=== PATIENT | female | born 1950 | race Caucasian/White ===

== ENCOUNTER 2017-02-25 10:25 | Outpatient (CLI) | payer MEDICARE ==
--- NOTE | 2017-02-25 13:26 | CT ---
CT CHEST NONCONTRAST: HISTORY: Lung cancer. Restaging. COMPARISON: 10/21/2016 FINDINGS: The lobular, heterogeneous mass at the right posterior suprahilar level, abutting the right posterior mediastinum, is now 5.6 cm in length x 6.1 cm in depth x 4 cm in width, where it was previously 2.3 x 2 x 1.9 cm. Subtle parenchymal opacity in the left upper lobe may represent scarring and is stable . No new masses are evident. Lack of IV contrast limits evaluation of the mediastinum. Nonenlarged precarinal lymph node is stabl e. No pleural fluid or pneumothorax are apparent. There is calcification in the aorta. IMPRESSION: 1. Enlargement of the right medial suprahilar lung mass. 2. Atherosclerosis. POS: [facility]
== END 2017-02-25 10:26 | disposition home or self-care (01) ==
LOC: CT 10:25
PROVIDERS: ATTEND Radiology Radiation Oncology
DX: C78.01 Secondary malignant neoplasm of right lung (principal); C21.1 Malignant neoplasm of anal canal; C18.7 Malignant neoplasm of sigmoid colon; R91.8 Other nonspecific abnormal finding of lung field; I70.0 Atherosclerosis of aorta
CPT/HCPCS: 36415; 71250; 82378

== ENCOUNTER 2017-03-05 07:58 | Day surgery (SDC) | payer MEDICARE ==
[2017-03-04 09:53] VITALS: BMI 23.6
[~2017-03-05 07:58] MED LIST: FLU VACC TS2017-18 (>65YR) 0.5 ML SYRINGE IM ONE
[2017-03-05 08:17] LABS: #Eosinphils 0.1 thou/uL (0.0-0.7); #Lymphocytes 1.1 thou/uL (1.20-3.40); #Monocytes 0.5 thou/uL (0.11-0.59); #Neutrophils 2.8 thou/uL (1.40-6.50); %Basophils 0.3 % (0.0-1.0); %Lymphocytes 23.5 % (21.0-51.0); %Monocytes 11.8 % (0.0-10.0); %Neutrophils 62.5 % (42.0-75.0); Hemoglobin 13.9 g/dL (12.0-16.0); Mean Corpuscular HGB CONC 33.8 g/dL (32.0-36.0); Mean Corpuscular Hemoglobin 33.4 pg (27.0-31.0); Mean Platelet Volume 6.3 fL (7.4-10.4); Platelet Count 178 thou/uL (130-400); RBC Distribution Width 13.4 % (11.5-14.5); Red Blood Cell (RBC) Count 4.15 mill/uL (4.20-5.40); White Blood Cell (WBC) Count 4.5 thou/uL (4.8-10.8)
[2017-03-05 08:26] LABS: PTT 29.8 SEC (22.9-36.1)
[2017-03-05 08:27] LABS: Prothrombin Time 13.4 SEC (12.0-14.7)
[2017-03-05 09:23] VITALS: BP 161/84; TEMP 98.6
[2017-03-05] MEDS ORDERED: Midazolam HCl 2 mg/2 ml Vial ONE (09:25)
[2017-03-05] MEDS ORDERED: Sodium Bicarbonate 2.4 MEQ/5 ML ONE (09:25)
[2017-03-05] MEDS ORDERED: Fentanyl 100 MCG/2 ML VIAL ONE (09:25)
--- NOTE | 2017-03-05 11:41 | RAD ---
CHEST ONE VIEW: History: Lung mass. Biopsy. FINDINGS/IMPRESSION: Cardiac silhouette is magnified by projection. Single expiratory view shows linear atelectasis over t he left upper lobe correlating with abnormality on recent chest CT. Large right suprahilar mass is apparent. No evidence of pneumothorax. POS: [facility]
--- NOTE | 2017-03-05 11:44 | CT ---
CT GUIDED RIGHT LUNG MASS BIOPSY: History: Lung cancer. Enlarging mass. Prior colon cancer. Medication: 1 mg Versed, IV. FINDINGS: After explaining the procedure and answering all questions, the patient was placed on the CT table in prone position. Sterile technique, buffered local anesthesia, CT guidance, and a right posterior par amidline approach were used to carefully advance the tip of a 20 gauge Trocar needle to the central a spect of the large right upper lobe mass. Position was confirmed with CT. A total of six 20 gauge core biopsy specimens were obtained and eventually submitted to pathology for evaluation. Needle was removed. Post procedure imaging shows no evidence of complication. Patient to lerated the procedure well and was returned to the holding area in good condition for further monitor ing. IMPRESSION: 1. Technically successful CT guided right upper lobe mass biopsy. Pathology is pending. POS: [facility]
--- NOTE | 2017-03-05 12:41 | RAD ---
AP CHEST: Indication: One hour post op right lung biopsy. IMPRESSION: No definite pneumothorax is evident. Right upper lobe lung mass is not appreciably changed. POS: [facility]
== END 2017-03-05 12:00 | disposition home or self-care (01) ==
LOC: CT 07:58
PROVIDERS: ATTEND Radiology Radiation Oncology
PROC: BB27ZZZ Computerized Tomography (CT Scan) of Right Tracheobronchial Tree (ICD-10-PCS; principal; 2017-03-05)
PROC: 0BB43ZX Excision of Right Upper Lobe Bronchus, Percutaneous Approach, Diagnostic (ICD-10-PCS; 2017-03-05)
DX: C78.01 Secondary malignant neoplasm of right lung (principal); C21.1 Malignant neoplasm of anal canal; C18.7 Malignant neoplasm of sigmoid colon; I10 Essential (primary) hypertension; Z79.899 Other long term (current) drug therapy; Z88.5 Allergy status to narcotic agent; Z90.49 Acquired absence of other specified parts of digestive tract; Z90.710 Acquired absence of both cervix and uterus; Z98.890 Other specified postprocedural states; Z92.21 Personal history of antineoplastic chemotherapy; Z92.3 Personal history of irradiation
CPT/HCPCS: 32405; 36415; 71045; 77012; 85025; 85610; 85730; 88305; 88313; 88341; 88342; J2250; J3010

== ENCOUNTER 2017-05-05 10:55 | Day surgery (SDC) | payer MEDICARE ==
[2017-05-04 12:43] VITALS: BMI 21.9
[2017-05-05] MEDS ORDERED: CEFAZOLIN/Water 2 GM/20 ML SYRINGE ONE (11:13)
[2017-05-05] MEDS ORDERED: Ketorolac Tromethamine 30 MG/ML VIAL ONE (11:13)
[2017-05-05] MEDS ORDERED: Bupivacaine/Epinephrine 0.25% 30 ML VIAL ONE (11:22)
[2017-05-05] MEDS ORDERED: Lidocaine 2% 10 ML INJ ONE (11:22)
[2017-05-05 11:27] LABS: #Eosinphils 0.1 thou/uL (0.0-0.7); #Lymphocytes 1.1 thou/uL (1.20-3.40); #Monocytes 0.5 thou/uL (0.11-0.59); #Neutrophils 2.1 thou/uL (1.40-6.50); %Basophils 0.9 % (0.0-1.0); %Eosinophils 1.4 % (0.0-10.0); %Lymphocytes 28.8 % (21.0-51.0); %Neutrophils 55.9 % (42.0-75.0); Hemoglobin 12.8 g/dL (12.0-16.0); Mean Corpuscular HGB CONC 34.4 g/dL (32.0-36.0); Mean Corpuscular Hemoglobin 34.2 pg (27.0-31.0); Mean Corpuscular Volume 99.3 fl (81.0-99.0); Mean Platelet Volume 6.5 fL (7.4-10.4); Platelet Count 175 thou/uL (130-400); RBC Distribution Width 17.9 % (11.5-14.5); Red Blood Cell (RBC) Count 3.73 mill/uL (4.20-5.40); White Blood Cell (WBC) Count 3.7 thou/uL (4.8-10.8)
[2017-05-05] MEDS ORDERED: Lidocaine 1% (PF) 30 ML VIAL ONE (11:35)
[2017-05-05 11:46] LABS: Anion Gap 13 mmol/L (10-20); BUN (Urea Nitrogen) 15 mg/dL (9.8-20.1); Calc. Creatinine Clearance 66 mL/min (70-130); Calcium 9.5 mg/dL (7.8-10.44); Carbon Dioxide 28 mmol/L (23-31); Chloride 101 mmol/L (98-107); Estimated GFR-MDRD 69; Glucose 97 mg/dL (80-115); Sodium 138 mmol/L (136-145)
[2017-05-05] MEDS ORDERED: Iothalamate Meglumine 60% 50 ML VIAL FS ONE (13:06)
[2017-05-05] MEDS ORDERED: Ioversol 68 % 50 ML VIAL ONE (13:07)
[2017-05-05] MEDS ORDERED: Diprivan 20 ML ONE (13:13)
--- NOTE | 2017-05-05 14:32 | OP ---
DATE OF OPERATION: 05/05/2017 PREOPERATIVE DIAGNOSIS: Metastatic cancer to her lung. POSTOPERATIVE DIAGNOSIS: Metastatic cancer to her lung. OPERATION PERFORMED: Attempted placement of left subclavian and left internal jugular catheter, with subsequent successful placement of a right subclavian power compatible low-profile MediPort. SURGEON: Cam Villeda M.D. ANESTHESIA: Total intravenous anesthesia per Sherman Lee CRNA. INDICATIONS: The patient is a 66-year-old white female. She is well known to myself from prior surg manuela. She, unfortunately, presents this time with evidence of metastatic cancer to her right lung. S he has had a prior left-sided MediPort placement. Since her cancer is in the right lung, I recommend ed an attempt at placement of a left-sided port again. DESCRIPTION OF OPERATION: Informed consent was obtained. The patient was taken to the operating rafa m where general anesthesia obtained with the patient in supine position. Bilateral chest and neck we re prepped with ChloraPrep and draped in sterile fashion. Local anesthetic was infiltrated and a lar ge gauge needle was passed under the left clavicle into the left subclavian vein without difficulty. Fluoroscopy was utilized as the wire was advanced. Unfortunately, the wire on 100% of attempts pass ed up into the left internal jugular vein. I attempted multiple maneuvers to try to get the wire to extend down into the superior vena cava and none of these were successful. After attempting this wit h fluoroscopic guidance for several minutes, I decided to turn my attention to her left internal jugu lar vein. Using ultrasound guidance, I accessed her left internal jugular vein uneventfully. Unfortunately, th e wire would not proceed across midline and down towards the heart. Again, multiple maneuvers were a ttempted to facilitate this. After attempting this for quite a while, I removed the wire and instead flushed the catheter with IV contrast. This did in fact reveal that there was patency in the brachi ocephalic vein and over towards the superior vena cava, but there may have been a stenosis in this. I attempted once again with the wire and again could not get it to make appropriate progress. I yanick ramosore decided to abandon attempts at the left-sided port placement. On the right hand side, local anesthetic was infiltrated. Large gauge needle was passed into the cla vicle on the initial pass. Guidewire was passed through the needle and fluoroscopically guided to th e superior vena cava. Additional local anesthetic was infiltrated and transverse incision was create d based on needle insertion site. Subcutaneous pocket was dissected extending inferiorly. Introduce r dilator was passed over the guidewire under fluoroscopic guidance. Catheter was passed through the introducer, which was then removed in the usual peel-apart fashion. The catheter tip was positioned at the aorto-caval junction and catheter was trimmed to appropriate length and secured to the lockin g hub of the MediPort. The port was secured to the pectoral fascia with 2 interrupted sutures of 3-0 Prolene. The wound was closed in layers with 3-0 and 4-0 Monocryl and Dermabond was placed external ly. A final fluoroscopic image was obtained, which revealed good position of the port and catheter. The port was then accessed with a Hunter needle, which was also flushed with heparinized saline. The plan is for her to get chemotherapy tomorrow and I therefore left her port accessed. Sterile dressi ng was applied over the access port. The patient tolerated the procedure well and was taken to [facility] in stable condition.
--- NOTE | 2017-05-05 15:04 | RAD ---
ONE VIEW CHEST: Comparison: 03-05-17 History: Lung cancer. Line placement. FINDINGS: Interval placement of right sided Mediport catheter with the distal tip at the level of the superior vena cava. No pneumothorax. Stable configuration of the cardiac silhouette. Areas of scarring and ate lectasis in the left midlung. Stable right paratracheal/right suprahilar mass. IMPRESSION: Right sided Mediport catheter placement. No pneumothorax. POS: [facility]
--- NOTE | 2017-05-05 15:48 | RAD ---
INTRAOPERATIVE IMAGING DURING PORT A CATH PLACEMENT: DATE: 05/05/17. HISTORY: Evaluate Port-A-Cath placement. FINDINGS: Three intraoperative images are provided. The first image demonstrates a wire curling over the regio n of the sternoclavicular joint on the left. Later imaging demonstrates injection of contrast media, which opacifies the region of the SVC/right atrium and brachiocephalic vein. The brachiocephalic ve in may be stenotic versus incompletely opacified. Final image demonstrates a right-sided Port-A-Cath with distal tip overlying the proximal right atrium. IMPRESSION: Intraoperative imaging as above. Question narrowing of the brachiocephalic vein. POS: [facility]
== END 2017-05-05 15:10 | disposition home or self-care (01) ==
LOC: SDC 10:55
PROVIDERS: ATTEND Specialist
PROC: 02HV33Z Insertion of Infusion Device into Superior Vena Cava, Percutaneous Approach (ICD-10-PCS; principal; 2017-05-05)
PROC: B5181ZA Fluoroscopy of Superior Vena Cava using Low Osmolar Contrast, Guidance (ICD-10-PCS; 2017-05-05)
DX: C78.01 Secondary malignant neoplasm of right lung (principal); Z85.048 Personal history of other malignant neoplasm of rectum, rectosigmoid junction, and anus; Z85.038 Personal history of other malignant neoplasm of large intestine; Z98.890 Other specified postprocedural states
CPT/HCPCS: 36415; 71045; 80048; 85025; 93005; 93010; C1788; J0131; J1642; J1885; J2001; J2704; Q9961; Q9967

== ENCOUNTER 2017-06-15 08:52 | Outpatient (CLI) | payer MEDICARE ==
[~2017-06-15 08:52] MED LIST changes: -FLU VACC TS2017-18 (>65YR) 0.5 ML SYRINGE IM ONE; +ISOVUE-370 76%-LOCM 1 ML ONE
== END 2017-06-15 08:53 | disposition home or self-care (01) ==
LOC: BICCT 08:52
PROVIDERS: ATTEND Internal Medicine Hematology & Oncology
DX: C20 Malignant neoplasm of rectum (principal); R91.8 Other nonspecific abnormal finding of lung field
CPT/HCPCS: 71260

== ENCOUNTER 2017-10-29 08:27 | Outpatient (CLI) | payer MEDICARE ==
[2017-10-29] MEDS ORDERED: ISOVUE-370 76%-LOCM 1 ML ONE (11:12)
--- NOTE | 2017-10-29 14:37 | CT ---
CT OF CHEST AND ABDOMEN AND PELVIS PERFORMED WITH INTRAVENOUS CONTRAST ENHANCEMENT: HISTORY: Colon cancer with metastatic disease. COMPARISON: CT of the chest performed 06/15/17 at [facility]. Review is also made of a 03/14/15 chest, abdom en, and pelvis examination. FINDINGS: The right hilar/suprahilar mass density which lies along the right side of the mediastinum and is int imate with portions of the right side of the trachea is again demonstrated. In attempting to use a s imilar point of reference on the previous examination would estimate the lesion to measure 5.9 cm AP x 4.1 cm transverse X 5.9 cm . There appears to be a minimal decrease in size, measurements on toda y's examination would be 3.5 x 5.9 x 5.3 cm. The area of nodularity with some surrounding ground-gla ss change seen in the right middle lobe is no longer visualized. No new lesions are seen. Small med iastinal lymph nodes do not appear changed in size or appearance. CT OF ABDOMEN PERFORMED WITH COTNRAST ENHANCEMENT: A small hiatal hernia is seen. The liver, spleen, pancreas, and gallbladder regions appear unremarka ble. Right and left adrenal glands and right and left kidneys are normal in size. There is no significant periaortic or mesenteric [id number]. CT OF PELVIS PERFORMED WITH CONTRAST ENHANCEMENT: There is an anastomotic suture line in the sigmoid colon. There is no adenopathy, mass, or free flui d. Appendix region appears unremarkable. Review of osseous structures showed no lytic or blastic bony change. IMPRESSION: 1. Minimal decrease in size of the right hilar/suprahilar mass density. 2. Interval resolution of the nodularity and ground-glass appearance to the right middle lobe. 3. Postoperative changes of the rectosigmoid colon. POS: [facility]
== END 2017-10-29 08:28 | disposition home or self-care (01) ==
LOC: BICCT 08:27
PROVIDERS: ATTEND Internal Medicine Hematology & Oncology
DX: C20 Malignant neoplasm of rectum (principal); R91.8 Other nonspecific abnormal finding of lung field; Z98.890 Other specified postprocedural states
CPT/HCPCS: 71260; 74177; 82565

== ENCOUNTER 2018-02-07 23:56 | Emergency (ER) | payer MEDICARE ==
[2018-02-08 00:56] LABS: #Lymphocytes 0.9 thou/uL (1.20-3.40); #Monocytes 0.3 thou/uL (0.11-0.59); #Neutrophils 3.2 thou/uL (1.40-6.50); %Basophils 0.2 % (0.0-1.0); %Lymphocytes 19.1 % (21.0-51.0); %Monocytes 6.6 % (0.0-10.0); %Neutrophils 73.1 % (42.0-75.0); Mean Corpuscular HGB CONC 33.4 g/dL (32.0-36.0); Mean Corpuscular Hemoglobin 34.2 pg (27.0-31.0); Mean Platelet Volume 6.9 fL (7.4-10.4); Platelet Count 214 thou/uL (130-400); RBC Distribution Width 13.6 % (11.5-14.5); Red Blood Cell (RBC) Count 4.11 mill/uL (4.20-5.40); White Blood Cell (WBC) Count 4.4 thou/uL (4.8-10.8)
[2018-02-08 01:18] LABS: ALT (SGPT) 18 U/L (8-55); AST (SGOT) 21 U/L (5-34); Albumin 4.5 g/dL (3.4-4.8); Alkaline Phosphatase 85 U/L (40-150); Anion Gap 15 mmol/L (10-20); BUN (Urea Nitrogen) 22 mg/dL (9.8-20.1); Bilirubin, Total 0.9 mg/dL (0.2-1.2); Calc. Creatinine Clearance 0 mL/min (70-130); Calcium 10.3 mg/dL (7.8-10.44); Carbon Dioxide 29 mmol/L (23-31); Chloride 95 mmol/L (98-107); Estimated GFR-MDRD 67; Globulin 3.2 g/dL (2.4-3.5); Glucose 126 mg/dL (80-115); Potassium 4.5 mmol/L (3.5-5.1); Protein, Total 7.7 g/dL (6.0-8.3); Sodium 134 mmol/L (136-145)
== END 2018-02-08 04:41 | disposition home or self-care (01) ==
LOC: ERS 23:56
DX: I10 Essential (primary) hypertension (principal)
CPT/HCPCS: 36415; 80053; 83690; 84484; 85025; 93005

== ENCOUNTER 2018-03-01 07:52 | Outpatient (CLI) | payer MEDICARE ==
--- NOTE | 2018-03-01 10:05 | CT ---
CT CHEST, ABDOMEN, AND PELVIS WITH CONTRAST: History: Multiple contiguous axial images were obtained through the chest, abdomen, and pelvis with I V enhancement. Oral contrast was administered. Indications: Metastatic colon cancer. Currently on chemo. History of colon resection and hysterectomy . Comparison: 10-29-17 FINDINGS: CT CHEST: The right sided suprahilar mass lesion is again seen. The overall dimension of this mass lesion has n ot significantly changed when compared to 10-29-17. Maxillary dimension today is recorded at 5.8 x 3.0 cm. A similar measurement was previously recorded at 5.8 x 3.5 cm. There is a small nodule in the right apex just above the larger mass which has increased slightly jyoti suring 6-7 mm today. This previously measured approximately 5 mm. Linear atelectasis in the left uppe r lung is stable. Mild atelectasis in the right lung base along the fissure is stable. There is mild mural thickening of the upper esophagus which is stable. The mediastinum is otherwise unremarkable an d unchanged. Osseous structures are unremarkable. IMPRESSION: 1. Right sided suprahilar mass lesion has not significantly changed from 10-29-17. CT ABDOMEN/PELVIS: Liver, spleen, pancreas and kidneys are unremarkable. Bowel loops are unremarkable. Aorta is calcifie d. Aortic dimensions are normal and unchanged. No adenopathy seen. Adrenal glands, kidneys, and urinary bladder are unremarkable. There is soft tissue prominence at the EG junction extending into the cardia of the stomach. Consider EGD to further evaluate. IMPRESSION: 1. Mural thickening of the esophagus and soft tissue prominence at the EG junction extending into the cardia of the stomach. Consider EGD to further evaluation. 2. CT abdomen and pelvis otherwise unremarkable and unchanged. POS: [facility]
[2018-03-01] MEDS ORDERED: ISOVUE-370 76%-LOCM 1 ML ONE (16:52)
== END 2018-03-01 07:53 | disposition home or self-care (01) ==
LOC: BICCT 07:52
PROVIDERS: ATTEND Internal Medicine Hematology & Oncology
DX: C18.9 Malignant neoplasm of colon, unspecified (principal); C79.9 Secondary malignant neoplasm of unspecified site; R91.8 Other nonspecific abnormal finding of lung field; K22.8 Other specified diseases of esophagus
CPT/HCPCS: 71260; 74177

== ENCOUNTER 2018-05-24 10:07 | Outpatient (CLI) | payer MEDICARE ==
[~2018-05-24 10:07] MED LIST changes: -ISOVUE-370 76%-LOCM 1 ML ONE; +Iopamidol 370 76% 100 ML VIAL ONE
--- NOTE | 2018-05-24 11:51 | CT ---
CT OF CHEST AND ABDOMEN AND PELVIS PERFORMED WITH IV CONTRAST ENHANCEMENT: Date: 05/24/18 HISTORY: Colon cancer with metastatic disease. COMPARISON: 03/01/18 study. FINDINGS: The right suprahilar/paravertebral soft tissue mass is again demonstrated. Attempting to measure in a similar manner to the previous examination yields measurements of 5.5 cm AP x 3.8 cm transverse, thi s is felt to be stable as compared to the prior examination. A small nodular density which was directly superior to this mass has been measured at 6-7 mm. I am no t certain that this is not part of a lesion, but it does appear more prominent on axial image 14 wher e it measures 9 mm, compared to 6-7 mm on the prior examination. Also directly lateral and slightly s uperior to this is another nodular area which has increased in size. It is seen also on axial image 1 4. It measures approximately 7-8 mm in AP dimension as compared to 4-5 mm on the prior exam, and anot her tiny nodular density measuring 2-3 mm in size is seen in the right lung apex, axial image 10. It measures 2-3 mm in size, but does represent an interval increase as compared to the prior examination . Review is also made of a 10/29/17 study, and both of these areas of nodularity have increased sligh tly in size as compared to that study. The parenchymal changes within the left upper lobe appear stab le. No significant mediastinal or hilar adenopathy is present. Thoracic aorta is normal in caliber. CT of abdomen was performed with contrast enhancement. The liver, spleen, pancreas, and gallbladder r egions all appear unremarkable. Right and left adrenal glands, and right and left kidneys are normal in size. No significant periaort ic or mesenteric adenopathy. CT of pelvis was performed with contrast enhancement. No significant pelvic lymphadenopathy or mass. Review of osseous structures showed no lytic or blastic bony change. IMPRESSION: 1. The right suprahilar/paravertebral soft tissue mass is stable in appearance. There has been a sli ght interval increase in size of some small nodules seen in the right lung apex as described above. 2. Stable appearance of some parenchymal scarring in the left upper lobe. 3. No evidence for any liver metastatic disease. 4. Anastomotic suture line noted in the rectosigmoid colon region. No sign of any mass or recurrence in this area. POS: [facility]
== END 2018-05-24 10:08 | disposition home or self-care (01) ==
LOC: BICCT 10:07
PROVIDERS: ATTEND Internal Medicine Hematology & Oncology
DX: C78.00 Secondary malignant neoplasm of unspecified lung (principal); C20 Malignant neoplasm of rectum; R91.8 Other nonspecific abnormal finding of lung field
CPT/HCPCS: 71260; 74177

== ENCOUNTER 2018-08-30 08:18 | Outpatient (CLI) | payer MEDICARE ==
--- NOTE | 2018-08-30 09:39 | CT ---
CT chest with IV contrast CT abdomen and pelvis with IV and oral contrast HISTORY: Colon cancer with pulmonary metastases. Restaging. COMPARISON: 05/24/2018. FINDINGS: The large right suprahilar paramediastinal mass now measures 5.7 cm depth by 4.6 cm width o n the axial images (previously 5.7 cm x 4.2 cm). Tiny nodule at the anterior aspect of the right apex is more conspicuous, now measuring 0.5 cm. Previously, a 0.9 cm nodule at the medial aspect of t he right upper lobe was measured but is indeed a portion of the larger right suprahilar mass. The nodule just superior/lateral to the right suprahilar mass remains 1.0 cm but is more confluent/dense on the current study. The 0.7 cm nodule at the central aspect of the right lower lobe just above the right hemidiaphragm is stable. Area of scarring within the left upper lobe is unchanged in appearance. No new masses are apparent. Slightly enlarged pretracheal lymph node is stable. Right hilar lymph node just above the l evel of the right sided mass now measures 1.9 cm greatest oblique diameter on the axial images (previously 1.6 cm). Liver has a normal appearance. No mass. Prominent calcification throughout the arterial structures. D egenerative changes lumbar spine. Suture row near the rectosigmoid junction is again noted. No associated mass. No free fluid or free a ir. IMPRESSION: Slight interval enlargement of the right suprahilar mass and lymph node. Slight enlargeme nt of right upper lobe nodules. Detailed above. Other findings are stable. Atherosclerosis.
[2018-08-30] MEDS ORDERED: ISOVUE-370 76%-LOCM 1 ML ONE (13:56)
== END 2018-08-30 08:19 | disposition home or self-care (01) ==
LOC: BICCT 08:18
PROVIDERS: ATTEND Internal Medicine Hematology & Oncology
DX: C78.00 Secondary malignant neoplasm of unspecified lung (principal); C19 Malignant neoplasm of rectosigmoid junction; R59.0 Localized enlarged lymph nodes; R91.8 Other nonspecific abnormal finding of lung field; I70.90 Unspecified atherosclerosis; M47.816 Spondylosis without myelopathy or radiculopathy, lumbar region
CPT/HCPCS: 71260; 74177; Q9966

== ENCOUNTER 2018-11-30 10:04 | Outpatient (CLI) | payer MEDICARE ==
--- NOTE | 2018-11-30 10:31 | RAD ---
EXAM: Chest 2 views: HISTORY: Pneumonia and rectal cancer COMPARISON: CT chest 08/30/2018 FINDINGS: There is a normal-sized cardiomediastinal silhouette. A right-sided Mediport is seen with its tip in the superior vena cava. Scarring is seen in the mid left thorax. A mass seen on the right superior mediastinum. The bones are unremarkable. IMPRESSION: Right superior mediastinal mass corresponds with the abnormality seen on CT.
== END 2018-11-30 10:05 | disposition home or self-care (01) ==
LOC: BICRAD 10:04
PROVIDERS: ATTEND Internal Medicine Hematology & Oncology
DX: J18.9 Pneumonia, unspecified organism (principal); C20 Malignant neoplasm of rectum; R91.8 Other nonspecific abnormal finding of lung field
CPT/HCPCS: 71046

== ENCOUNTER 2018-12-06 11:14 | Observation (INO) | payer MEDICARE ==
[2018-12-06] MEDS ORDERED: Magnesium Citrate 300 ML BOT ONE (14:52)
[2018-12-06] MEDS ORDERED: Fleet Enema 133 ML BOT FS SCH (15:15)
[2018-12-06] MEDS ORDERED: Ondansetron PF 4 MG/2 ML Vial ONE ×2 (17:17→17:31)
--- NOTE | 2018-12-06 17:32 | RAD ---
EXAM: XR Abdomen 1 View/KUB DATE: 12/06/2018 4:45 PM INDICATION: Rectal pain COMPARISON: None. FINDING: The bowel gas gas pattern is unobstructed. There is a moderate amount of retained stool. Th ere are scattered vascular calcifications. There is dextroscoliosis of the lumbar spine. There is suture seen within the lower central pelvis likely related to at least a partial colectomy. There is scattered degenerative change. IMPRESSION:No acute abnormality
[2018-12-06 17:44] LABS: #Eosinphils 0.1 thou/uL (0.0-0.7); #Lymphocytes 1.4 thou/uL (1.20-3.40); #Monocytes 0.9 thou/uL (0.11-0.59); #Neutrophils 6.1 thou/uL (1.40-6.50); %Basophils 0.6 % (0.0-1.0); %Eosinophils 0.7 % (0.0-10.0); %Lymphocytes 16.3 % (21.0-51.0); %Neutrophils 71.5 % (42.0-75.0); Hemoglobin 14.1 g/dL (12.0-16.0); Mean Corpuscular HGB CONC 32.3 g/dL (32.0-36.0); Mean Corpuscular Hemoglobin 30.5 pg (27.0-31.0); Mean Corpuscular Volume 94.3 fL (78.0-98.0); Platelet Count 225 thou/uL (130-400); RBC Distribution Width 15.1 % (11.5-14.5); Red Blood Cell (RBC) Count 4.63 mill/uL (4.20-5.40); White Blood Cell (WBC) Count 8.5 thou/uL (4.8-10.8)
[2018-12-06 18:12] LABS: ALT (SGPT) 31 U/L (8-55); AST (SGOT) 35 U/L (5-34); Albumin 4.3 g/dL (3.4-4.8); Alkaline Phosphatase 99 U/L (40-110); Anion Gap 16 mmol/L (10-20); BUN (Urea Nitrogen) 12 mg/dL (9.8-20.1); Bilirubin, Total 0.9 mg/dL (0.2-1.2); Calc. Creatinine Clearance 0 mL/min (70-130); Calcium 8.6 mg/dL (7.8-10.44); Carbon Dioxide 17 mmol/L (23-31); Chloride 98 mmol/L (98-107); Estimated GFR-MDRD 87; Globulin 3.6 g/dL (2.4-3.5); Glucose 108 mg/dL (80-115); Potassium 3.6 mmol/L (3.5-5.1); Protein, Total 7.9 g/dL (6.0-8.3); Sodium 127 mmol/L (136-145)
--- NOTE | 2018-12-06 18:12 | CT ---
CT abdomen and pelvis noncontrast HISTORY: Flank pain. COMPARISON: 08/30/2018. FINDINGS: Each renal collecting system and ureter are decompressed without stone apparent. Urinary bl adder is distended without stone. Pulmonary hyperinflation at the lung bases. A noncalcified nodule at the right lung base has enlarged since the prior CT to 0.9 cm. There is prominent calcification th roughout the arterial structures. Contrast limits evaluation for other abnormalities. No evidence of bowel obstruction. Postoperative c hanges of the rectosigmoid junction. Large amount of stool throughout the colon and rectum. Severe degenerative changes throughout the lumbar spine. IMPRESSION: No CT evidence of urinary tract obstruction or calcification. Atherosclerosis. Constipation. Postoperative changes of the rectum. Small hiatal hernia
[2018-12-06] MEDS: Sodium Chloride 0.9% 1,000 ML IV SCH (22:43)
[2018-12-06] MEDS ORDERED: Ondansetron ODT 4 MG TAB SL PRN (22:53)
[2018-12-06] MEDS ORDERED: Ondansetron PF 4 MG/2 ML Vial IVP PRN (22:53)
[2018-12-06] MEDS ORDERED: Melatonin 3 MG TAB PO PRN (23:21)
[2018-12-07] MEDS ORDERED: HYDROcodone/Acetaminophen 5/325 mg Tablet PO SCH (00:15)
[2018-12-07] MEDS: Sodium Chloride 0.9% 1,000 ML IV SCH (05:13)
[2018-12-07] MEDS ORDERED: Gabapentin 300 MG CAP PO PRN (07:24)
[2018-12-07] MEDS ORDERED: HYDROcodone/Acetaminophen 5/325 mg Tablet PO PRN ×2 (07:24→07:38)
[2018-12-07] MEDS ORDERED: Calcium Carbonate 500 MG ChewTAB PO PRN (07:26)
[2018-12-07] MEDS ORDERED: Ondansetron PF 4 MG/2 ML Vial IVP PRN (07:26)
[2018-12-07] MEDS ORDERED: Bisacodyl 5 MG TAB PO PRN (07:26)
[2018-12-07] MEDS ORDERED: Acetaminophen 325 MG TAB PO PRN (07:26)
[2018-12-07] MEDS ORDERED: Ondansetron ODT 4 MG TAB PO PRN (07:26)
[2018-12-07] MEDS ORDERED: Senokot S 8.6-50 MG TAB PO PRN (07:26)
[2018-12-07] MEDS ORDERED: Benzonatate 100 MG CAP PO PRN (07:28)
[2018-12-07] MEDS ORDERED: Labetalol HCl 100 MG/20 ML VIAL SLOW IVP PRN (07:28)
[2018-12-07] MEDS ORDERED: diphenhydrAMINE 25 MG CAP PO PRN (07:28)
[2018-12-07] MEDS ORDERED: Docusate 100 MG CAP PO PRN (07:28)
[2018-12-07] MEDS ORDERED: Fleet Enema 133 ML BOT PR SCH (07:30)
[2018-12-07] MEDS: Gabapentin 300 MG CAP PO SCH ×4 (08:15→20:12)
[2018-12-07] MEDS: Famotidine 20 MG TAB PO SCH ×2 (08:16→20:13)
[2018-12-07] MEDS: Heparin 5,000 UNITS/ML VIAL SC SCH ×3 (08:16→20:13)
[2018-12-07] MEDS: Amlodipine 5 MG TAB PO SCH (08:16)
[2018-12-07 08:28] LABS: Anion Gap 12 mmol/L (10-20); BUN (Urea Nitrogen) 9 mg/dL (9.8-20.1); Calc. Creatinine Clearance 68 mL/min (70-130); Calcium 8.3 mg/dL (7.8-10.44); Carbon Dioxide 24 mmol/L (23-31); Chloride 106 mmol/L (98-107); Estimated GFR-MDRD 87; Glucose 82 mg/dL (80-115); Potassium 4.3 mmol/L (3.5-5.1); Sodium 138 mmol/L (136-145)
[2018-12-07] MEDS ORDERED: AMOXICILLIN 500 MG PO SCH (09:00)
[2018-12-07] MEDS ORDERED: REGORAFENIB 40 MG PO SCH ×2 (09:00)
[2018-12-07] MEDS: AMOXicillin 250 MG CAP PO SCH ×2 (10:00→20:12)
[2018-12-07] MEDS ORDERED: Non-Formulary Item 1 EACH (Gabapentin [Neurontin] 600 MG) PO SCH (12:00)
[2018-12-07 12:32] VITALS: BMI 18.6
--- NOTE | 2018-12-07 17:57 | PDOC.HHP ---
Hospitalist HPI - History of Present Illness Rectal/ abdominal pain and constipation History of Present Illness: 68-year-old female with past medical history of colon/ rectal cancer with metastasis to the lungs who is status post chemo and radiation diagnosed more than 10 years ago who was on chronic therapy with tyrosine kinase inhibitor presents with worsening abdominal pain/rectal pain and constipation. Patient has known history of cancer greater than 10 years ago and has good follow up with Dr. Ho at the oncology clinic. Patient presented to [facility] on 12/06/2018, I was called to see the patient on the morning of 12/07/2018. I placed admission orders at that time. I find the patient on the medical unit she is sitting up in bed in no apparent distress. Patient is breathing well on room air. Patient at that time had passed only a very small amount of rock hard stool. Patient has been placed on a clear liquid diet by the emergency department physician. I recommended to the patient that enemas or suppositories may be required to alleviate severe constipation secondary to her narrowing/ anatomy of the cancer. Patient would like to wait on enemas at this time. Will continue the patient on liquid diet, consider gastroenterology consultation and oncology consultation if the patient worsens. Hospitalist ROS - Review of Systems All other systems reviewed; all pertinent +/- noted in HPI/Subj - Medication Medications: Active Medications Generic Name Dose Route Start Last Admin Trade Name Freq PRN Reason Stop Dose Admin Amlodipine Besylate 5 mg 12/07/18 09:00 12/07/18 08:16 Norvasc PO 5 mg DAILY COLE Administration Amoxicillin 500 mg 12/07/18 09:00 12/07/18 10:00 Amoxil PO 12/09/18 00:01 500 mg BID COLE Administration Famotidine 20 mg 12/07/18 09:00 12/07/18 08:16 Pepcid PO 20 mg BID COLE Administration Gabapentin 600 mg 12/07/18 12:00 12/07/18 15:26 Neurontin PO 600 mg 0700,1200,1600,2100 COLE Administration Heparin Sodium (Porcine) 5,000 units 12/07/18 09:00 12/07/18 15:26 Heparin SC 5,000 units TID COLE Administration Metoprolol Succinate 50 mg 12/07/18 09:00 12/07/18 08:16 Toprol Xl PO 50 mg BID COLE Administration Sodium Chloride 10 ml 12/07/18 09:00 12/07/18 10:01 Flush - Normal Saline IVF Not Given Q12HR [facility] Hospitalist History - Past Medical History Source: patient Cardiac: reports: HTN Pulmonary: reports: high cholesterol, hypertension, lung disease (lung mass) [employer]: reports: Peripheral neuropathy Heme/Onc: reports: Cancer - Social History Smoking Status: Unknown if ever smoked Alcohol: reports: None Drugs: reports: none Living Situation: With Family Domestic Violence: Negative Activity level: uses cane/walker - Exam General Appearance: NAD, awake alert Eye: PERRL ENT: normocephalic atraumatic, moist mucosa Neck: supple, symmetric, no lymphadenopathy Heart: no murmur, no gallops, no rubs, normal peripheral pulses Respiratory: CTAB, no wheezes, no rales, no ronchi, normal chest expansion Gastrointestinal: soft, non-distended, normal bowel sounds, no guarding, no rigidity, tender to palpation Gastrointestinal - other findings: Fullness in the left lower quadrant, mildly tender to palpation Extremities: no edema Skin: no lesions, no rashes Neurological: cranial nerve grossly intact, normal sensation to touch, no focal deficits Musculoskeletal: no muscle wasting Psychiatric: normal affect, A&O x 3 Hospitalist Results - Labs Result Diagrams: 12/06/18 17:35 12/07/18 07:37 Lab results: WBC 8.5 thou/uL (4.8-10.8) 12/06/18 17:35 Hgb 14.1 g/dL (12.0-16.0) 12/06/18 17:35 Hct 43.7 % (36.0-47.0) 12/06/18 17:35 MCV 94.3 fL (78.0-98.0) 12/06/18 17:35 Plt Count 225 thou/uL (130-400) 12/06/18 17:35 Neutrophils % 71.5 % (42.0-75.0) 12/06/18 17:35 Sodium 138 mmol/L (136-145) 12/07/18 07:37 Potassium 4.3 mmol/L (3.5-5.1) 12/07/18 07:37 Chloride 106 mmol/L (98-107) 12/07/18 07:37 Carbon Dioxide 24 mmol/L (23-31) 12/07/18 07:37 BUN 9 mg/dL (9.8-20.1) L 12/07/18 07:37 Creatinine 0.67 mg/dL (0.6-1.1) 12/07/18 07:37 Glucose 82 mg/dL (80-115) 12/07/18 07:37 Calcium 8.3 mg/dL (7.8-10.44) 12/07/18 07:37 Total Bilirubin 0.9 mg/dL (0.2-1.2) 12/06/18 17:35 AST 35 U/L (5-34) H 12/06/18 17:35 ALT 31 U/L (8-55) 12/06/18 17:35 Alkaline Phosphatase 99 U/L (40-110) 12/06/18 17:35 Serum Total Protein 7.9 g/dL (6.0-8.3) 12/06/18 17:35 Albumin 4.3 g/dL (3.4-4.8) 12/06/18 17:35 - Radiology Interpretation CT scan - abdomen Status: image reviewed by sd Hospitalist H&P A/P - Problem (1) Constipation Code(s): K59.00 - CONSTIPATION, UNSPECIFIED Status: Acute (2) Abdominal pain Code(s): R10.9 - UNSPECIFIED ABDOMINAL PAIN Status: Acute (3) Malignant neoplasm of anorectum Code(s): C21.8 - MALIG NEOPLASM OF OVRLP SITES OF RECTUM, ANUS AND ANAL CANAL Status: Acute (4) HTN (hypertension) Code(s): I10 - ESSENTIAL (PRIMARY) HYPERTENSION Status: Acute (5) Weakness generalized Code(s): R53.1 - WEAKNESS Status: Acute (6) Peripheral neuropathy Code(s): G62.9 - POLYNEUROPATHY, UNSPECIFIED Status: Acute - Plan Plan: Plan: admit to medical unit consider gastroenterology consult/oncology consult if the patient worsens full liquid diet enemas as needed for severe constipation stool softeners increased oral intake of water/fluids/prune juice/prunes on a daily basis to avoid constipation continue other home medications as able blood pressure control blood sugar control Likely D/c in the next 24 hours if constipation improves/ resolves
[2018-12-08] MEDS: Gabapentin 300 MG CAP PO SCH (07:02)
[2018-12-08] MEDS: Amlodipine 5 MG TAB PO SCH (08:26)
[2018-12-08] MEDS: Heparin 5,000 UNITS/ML VIAL SC SCH (08:26)
[2018-12-08] MEDS: Famotidine 20 MG TAB PO SCH (08:26)
[2018-12-08] MEDS: AMOXicillin 250 MG CAP PO SCH (09:16)
[2018-12-08 11:32] VITALS: BP 150/82; TEMP 98.1
--- NOTE | 2018-12-08 22:37 | DIS ---
DATE OF ADMISSION: 12/06/2018 DATE OF DISCHARGE: 12/08/2018 CONDITION ON DISCHARGE: Stable. DISCHARGE INSTRUCTIONS: 1. The patient is recommended to take a regular bowel regimen starting with. a. Increased fluid intake and prune juice. b. Colace one tablet p.o. b.i.d., hold a single dose for loose stools. c. One to two times per week maximum laxative such as MiraLAX may be used. d. Suppository such as glycerin or fleet enema may be used if no bowel movement. 2. The patient recommended to continue all other home medications without changes. 3. The patient is recommended to follow up with primary care physician in the next 5 to 7 days. 4. The patient is recommended to follow up with Oncologist in the next 2 to 4 weeks. 5. The patient is recommended to return to acute care hospital immediately if signs or symptoms return, worsen, or any other new symptoms occur. REASON FOR HOSPITALIZATION: Constipation in the setting of anal rectal cancer and possible obstruction. SIGNIFICANT FINDINGS: The patient was found to have significant stool burden and severe constipation, secondary to anorectal cancer. PROCEDURES PERFORMED/TREATMENTS RENDERED: The patient was placed on a liquid diet and had symptomatic medications to help alleviate her bowels. The patient had several bowel movements and was feeling much better prior to discharge. DISCHARGE MEDICATIONS: 1. Stivarga 40 mg one tablet p.o. daily. 2. Nivolumab 3 mg/kg IV q.14 days IV piggyback. 3. Metoprolol succinate XL 50 mg one tablet p.o. b.i.d. 4. [place] 5 mg one half of one tablet p.o. q.4 hours p.r.n. pain. 5. Gabapentin 600 mg one tablet p.o. 4 times per day. 6. Gabapentin 300 mg one tablet p.o. daily p.r.n. neuropathy. 7. Amlodipine 5 mg one tablet p.o. daily. 8. Tylenol Extra Strength p.m. one tablet p.o. at bedtime. 9. Acetaminophen 500 mg one tablet p.o. q.4 hours p.r.n. pain. 10. Docusate 100 mg one tablet p.o. b.i.d., hold a single dose for loose stools. 11. MiraLAX one dose of 17 g daily p.r.n. constipation. 12. Glycerin rectal suppository one per rectum daily p.r.n. constipation. 13. Fleet enema per rectum, one bottle per rectum daily p.r.n. constipation. Greater than 33 minutes spent coordinating care and discharge process for this patient. Job ID: [id number]
== END 2018-12-08 11:36 | disposition home or self-care (01) ==
LOC: ERS 11:14 → T4-B 17:30
PROVIDERS: ADMIT Internal Medicine; ATTEND Internal Medicine
DX: C21.8 Malignant neoplasm of overlapping sites of rectum, anus and anal canal (principal); K59.00 Constipation, unspecified; C78.00 Secondary malignant neoplasm of unspecified lung; I10 Essential (primary) hypertension; E78.00 Pure hypercholesterolemia, unspecified; G62.9 Polyneuropathy, unspecified; R53.1 Weakness; K44.9 Diaphragmatic hernia without obstruction or gangrene; Z79.2 Long term (current) use of antibiotics; Z79.899 Other long term (current) drug therapy
CPT/HCPCS: 74018; 74176; 80048; 80053; 85025; 96361 ×3; 96372; 96374; 97139 ×4; 99285; G0378 ×4; 36415; A4353; J1642; J1644; J2405

== ENCOUNTER 2019-03-21 09:41 | Outpatient (CLI) | payer MEDICARE ==
--- NOTE | 2019-03-21 11:33 | MRI ---
CERVICAL SPINE MRI WITH AND WITHOUT CONTRAST: HISTORY: Rectal neoplasm with metastases. COMPARISON: None. TECHNIQUE: Cervical spine MRI is performed without intravenous and with intravenous gadolinium administration. Multi sequential, multiplanar imaging is performed. FINDINGS: There is heterogeneous T1 and T2 signal intensity throughout the lumbar vertebrae without evidence of associated STIR hyperintensity. There is no evidence of abnormal osseous enhancement. The visualized brain parenchyma, cervicomedullary junction, cervical cord and the upper thoracic cord have a normal size and signal intensity. Sagittal images suggest a possible subtle extramedullary, intradural T1 isointense/hyperintense focus, incompletely evaluated at the T3 level. Dedicated imagin g of the thoracic spine is recommended. There appear to be pleural and parenchymal changes in the right lung apex. C2-C3: Central disc bulge. No significant central canal stenosis or neural foraminal narrowing. C3 3-C4: Broad-based disc-osteophyte complex with a central/left paracentral component. There is defo rmity the cervical cord, without cord signal abnormality. Moderate central canal stenosis. Moderate right and moderate to severe left foraminal narrowing due to uncovertebral and facet hypertrophy. C4-C5: Broad-based disc-osteophyte complex causes mass effect upon the cervical cord and thecal sac. There is moderate central canal stenosis. Moderate bilateral foraminal narrowing due to uncovertebral hypertrophy. C5-C6: There is a broad-based disc-osteophyte complex with a right paracentral component. Subarachnoi d space is effaced along the right aspect of the central spinal canal. No cord signal abnormality. Mild central canal stenosis. Moderate to severe bilateral neural foraminal narrowing. C6-C7: Broad-based disc-osteophyte complex abuts the thecal sac. Subarachnoid space is effaced and th ere is mild flattening the cervical cord. Moderate central canal stenosis. Mild to moderate bilateral foraminal narrowing. C7-T1: Broad-based disc-osteophyte complex with a right paracentral component. Subarachnoid space is effaced. Mild central canal stenosis. Mild right foraminal narrowing. Left neural foramen is patent. IMPRESSION: 1. Multilevel degenerative changes of the cervical spine as described above. 2. No evidence of osseous metastases. Heterogeneous marrow signal intensity is presumed to be due to senescent change. 3. Questionable intradural extramedullary lesion along the left aspect of the central spinal canal at the T3 level. Dedicated pre and post contrast thoracic spine imaging is recommended. 4. Pleural and parenchymal changes in the right lung apex, incompletely evaluated. CODE T
[2019-03-21] MEDS ORDERED: Magnevist 469MG/ML 20 ML VIAL ONE (15:58)
== END 2019-03-21 09:42 | disposition home or self-care (01) ==
LOC: BICMRI 09:41
PROVIDERS: ATTEND Internal Medicine Hematology & Oncology
DX: C20 Malignant neoplasm of rectum (principal); C18.7 Malignant neoplasm of sigmoid colon; C01 Malignant neoplasm of base of tongue; M47.812 Spondylosis without myelopathy or radiculopathy, cervical region
CPT/HCPCS: 72156; 82565; A9579

== ENCOUNTER 2019-11-09 09:43 | Inpatient (IN) | payer MEDICARE, OTHER ==
[~2019-11-09 09:43] MED LIST changes: -Iopamidol 370 76% 100 ML VIAL ONE; +Iopamidol-370 76% 500 ML 1 ML ONE
--- NOTE | 2019-11-09 10:45 | RAD ---
XR Chest 1 View Portable History: Dyspnea Comparison: CT examination February 2019 Findings: Large right suprahilar mass is similar in size from the February 2019 tomogram. Increased co nfluent opacities within the left upper lobe concerning for metastatic disease and less likely enlarging parenchymal scar. Right lower lobe nodule appears be enlarging. Impression: 1. Abnormal increased nodularity throughout the left upper lobe somewhat lentiform shape concerning f or disease recurrence/metastasis superimposed upon the left upper lobe scar. 2. Increasing in size right lower lobe metastatic focus.
[2019-11-09 10:55] LABS: #Lymphocytes 0.6 thou/uL (1.20-3.40); #Monocytes 0.6 thou/uL (0.11-0.59); #Neutrophils 4.2 thou/uL (1.40-6.50); %Eosinophils 0.3 % (0.0-10.0); %Lymphocytes 11.1 % (21.0-51.0); %Monocytes 10.6 % (0.0-10.0); Mean Corpuscular HGB CONC 31.9 g/dL (32.0-36.0); Mean Corpuscular Hemoglobin 34.7 pg (27.0-31.0); Mean Platelet Volume 8.4 fL (7.4-10.4); Platelet Count 168 thou/uL (130-400); RBC Distribution Width 21.1 % (11.5-14.5); Red Blood Cell (RBC) Count 2.89 mill/uL (4.20-5.40); White Blood Cell (WBC) Count 5.4 thou/uL (4.8-10.8)
[2019-11-09 11:02] LABS: ALT (SGPT) 8 U/L (8-55); AST (SGOT) 14 U/L (5-34); Alkaline Phosphatase 97 U/L (40-110); Anion Gap 15 mmol/L (10-20); BUN (Urea Nitrogen) 17 mg/dL (9.8-20.1); Bilirubin, Total 0.5 mg/dL (0.2-1.2); Calc. Creatinine Clearance 0 mL/min (70-130); Calcium 9.6 mg/dL (7.8-10.44); Carbon Dioxide 28 mmol/L (23-31); Chloride 98 mmol/L (98-107); Estimated GFR-MDRD 70; Globulin 3.4 g/dL (2.4-3.5); Glucose 107 mg/dL (80-115); Potassium 4.3 mmol/L (3.5-5.1); Protein, Total 7.4 g/dL (6.0-8.3); Sodium 137 mmol/L (136-145)
[2019-11-09 11:23] LABS: MDiff Complete? YES; Macrocytosis SLIGHT = 6-15 cells (100X) (0-5/hpf); Platelet Morphology Comment Appears Adequate; Polychromasia SLIGHT = 2-3 cells (100X) (0-2/hpf)
[2019-11-09] MEDS ORDERED: cefTRIAXone\\ROCEPHIN 2 GM VIAL ONE (12:17)
[2019-11-09] MEDS ORDERED: Morphine 4 MG/ML VIAL ONE (12:22)
[2019-11-09] MEDS ORDERED: Azithromycin 500 MG VIAL ONE ×2 (12:53→13:02)
[2019-11-09 13:50] VITALS: BMI 18.0
[2019-11-09] MEDS ORDERED: Morphine 2 MG/ML VIAL SLOW IVP PRN (14:16)
[2019-11-09] MEDS ORDERED: Ondansetron ODT 4 MG TAB PO PRN (14:17)
[2019-11-09] MEDS ORDERED: Acetaminophen 325 MG TAB PO PRN (14:17)
[2019-11-09] MEDS ORDERED: Ondansetron PF 4 MG/2 ML Vial IVP PRN (14:17)
[2019-11-09] MEDS ORDERED: Sodium Chloride 0.9% 1,000 ML IV SCH (14:30)
[2019-11-09] MEDS ORDERED: Calcium Carbonate 500 MG ChewTAB PO PRN (14:35)
[2019-11-09] MEDS ORDERED: Bisacodyl 10 MG SUPP PR PRN (14:35)
[2019-11-09] MEDS ORDERED: Guaifenesin DM 100-10/5 ML UDCUP PO PRN (14:35)
--- NOTE | 2019-11-09 14:40 | CT ---
CTA OF THE THORAX UTILIZING IV CONTRAST, PE PROTOCOL, AND 3D REFORMATTED IMAGING: INDICATION: History of progressive shortness of breath, diminished in low O2 sat with a history of cancer of the head and neck from colon cancer. COMPARISON: CT of the chest, abdomen, and pelvis from [facility] dated March 06, 2019, and a CT of the chest, abdomen, and pelvis dated 08/30/2018 from [facility]. FINDINGS: No definite central or segmental pulmonary embolus is evident. The right upper suprahilar mass is stable in size to a comparison CT from 03/06/2019. There is an end obronchial lesion seen within the distal right main bronchus that is new from the prior examination t hat is likely due to ingrowth from the patient's large right suprahilar mass does extend into the dis balbina mainstem tracheal on image 49 series 3. The area of more geographic airspace consolidation in the left upper lobe is now surrounded by new gr ound-glass airspace opacity. There are now multifocal opacities within the anterior segment of the l eft upper lobe as well as within the superior segment of the left lower lobe and posteromedial segmen t of the left lower lobe suspicious for pneumonia. The nodule within the right lower lobe has enlarged now measuring 1.6 cm where previously the lesion measured 9 mm. There are also new airspace opacities seen within the posteromedial right lower lobe. No pleural effusion or pneumothorax is evident. Visualized upper abdomen is unremarkable-appearing. There is scattered degenerative and osteoarthritic change. IMPRESSION: 1. Worsening endobronchial invasion from a large right suprahilar mass when compared to the prior in March 06, 2019. 2. New scattered airspace opacity of the left upper lobe, left lower lobe, and right lower lobe susp icious for pneumonia. 3. No definite central or segmental pulmonary embolus demonstrated. 4. Oncological and pulmonary referral is recommended. POS: [facility]
[2019-11-09] MEDS: Sodium Chloride 0.9% 1,000 ML IV SCH (14:41)
--- NOTE | 2019-11-09 15:33 | HP ---
REASON FOR ADMISSION: Possible pneumonia. HISTORY OF PRESENTING ILLNESS: The patient gives history of having trouble breathing at home. This has been ongoing for last 2 to 3 weeks now. She checked her saturations at home, on exertion it was less than 70%. She called Dr. Ho' office and was asked to come to the ER for a CAT scan. The patient, on arrival, had saturations of 70% and was placed on 1 L oxygen by nasal cannula. It promptly came up to be on 90% per ER physician. The initial x-ray was suggestive of possible increasing lung mass from prior metastasis from colorectal cancer when compared to a prior x-ray done in February. The patient states she gets every 3 months CAT scans and PET scans done at [facility] and states her tumor is in fact shrinking. She has multiple cancers including throat and colorectal with metastasis to lungs. The colorectal cancer is from 2012, throat cancer is from 2009. Most of her workup was done at [facility] and she follows up with Dr. Ho locally here. PAST MEDICAL AND SURGICAL HISTORY: The patient is on Lonsurf, PO that is pyrimidine antimetabolite, and Avastin IV for colorectal cancer with metastasis; hypertension; dyslipidemia; peripheral neuropathy; history of squamous cell base of tongue cancer diagnosed in 2009; colorectal cancer diagnosed in 2012; she had adenocarcinoma of the anus diagnosed in 2014; right subclavian MediPort, placed in April [address] Villeda; lung biopsy done on 03/05/2017, showed findings suggestive of metastatic colonic adenocarcinoma; hysterectomy; colon resection; melanomas removed, recent one removed over the right close to the sternum with 2 sutures on her anterior chest wall. CURRENT MEDICATIONS: The patient is on: 1. Norvasc 5 mg daily. 2. Gabapentin 300 mg daily. 3. Metoprolol tartrate 50 mg daily. 4. Gabapentin 600 mg 4 times daily. 5. Rogers p.r.n. for pain. 6. Lonsurf daily. ALLERGIES: NO KNOWN DRUG ALLERGIES. PERSONAL HISTORY: Does not abuse alcohol or drugs. No history of smoking. Lives with her . Ambulates with a walker. FAMILY HISTORY: Mother had breast cancer, in her 90s. Father had history of melanoma, in his 80s. CODE STATUS: The patient does not want to be intubated, but she is okay with CPR and cardiac resuscitation. Power of workers compensation attorney is her . REVIEW OF SYSTEMS: CONSTITUTIONAL: Negative for weight loss or gain, ability to conduct usual activities. SKIN: Negative for rash, itching. EYES: Negative for double vision, pain. ENT/MOUTH: Negative for nose bleeding, neck stiffness, pain, tenderness. CARDIOVASCULAR: Negative for palpitations, dyspnea on exertion, orthopnea. RESPIRATORY: Negative for shortness of breath, wheezing, cough, hemoptysis, fever or night sweats. GASTROINTESTINAL: Negative for poor appetite, abdominal pain, heartburn, nausea, vomiting, constipation, or diarrhea. GENITOURINARY: Negative for urgency, frequency, dysuria, nocturia. MUSCULOSKELETAL: Negative for pain, swelling. NEUROLOGIC/PSYCHIATRIC: Negative for anxiety, depression. ALLERGY/IMMUNOLOGIC: Negative for skin rash, bleeding tendency. PHYSICAL EXAMINATION: GENERAL: The patient is a 69-year-old female, who is currently not in any acute distress. VITAL SIGNS: Blood pressure 126/60, pulse 84 per minute, respiratory rate 16 per minute, temperature 97.6 degrees Fahrenheit, saturating 92% on 2 L nasal cannula. NECK: Supple. No elevated JVD. HEENT: Eyes; extraocular muscles intact. Pupils reacting to light. Oral cavity, mucous membranes are dry. No exudates or congestion. CARDIOVASCULAR SYSTEM: S1 and S2 heard, regular rhythm. RESPIRATORY: Air entry 1+ bilateral. No rales or rhonchi. ABDOMEN: Soft. Bowel sounds heard. No tenderness, rigidity, or guarding. EXTREMITIES: No peripheral edema or calf tenderness. VASCULAR SYSTEM: Peripheral pulses 1+ bilateral. No ischemic ulcerations or gangrene. CENTRAL NERVOUS SYSTEM: No gross focal deficits noted. The patient is alert, awake, oriented well. PSYCHIATRIC SYSTEM: The patient's mood is euthymic. No hallucinations or delusions. LABORATORY DATA: White count of 5, H and H 10 and 31, platelet count 168, MCV is 109 with 78% neutrophils. Electrolytes stable. BUN 17, creatinine 0.8, serum glucose 107. Liver enzymes within normal limits. Troponin x1 negative. CT angio chest done shows worsening endobronchial invasion from a large right suprahilar mass when compared to March 06, 2019 imaging. This was compared to the imaging done at [facility]. There is new scattered airspace opacity of the left upper lobe, left lower lobe, and right lower lobe, suspicious for pneumonia. No pulmonary embolus was seen. CLINICAL IMPRESSION AND PLAN: The patient will be admitted to oncology floor for pneumonia with possible progression of her cancer. The patient has history of colorectal cancer with metastasis to lungs and is undergoing chemotherapy under Dr. Jasso at [facility] and Dr. Ho locally. She is on Lonsurf and Avastin. We will place her on cefepime and Zithromax for now. DuoNebs q.6 hourly. We will consult Dr. De Souza for Pulmonology and Dr. Ho for Oncology. We will continue gabapentin, Toprol-XL, and Norvasc as before. The patient states she has not been able to eat much and has loss of appetite from last [address] her on Megace for the same. She will be on a regular diet. We will obtain PT/OT evaluations and try to wean her off oxygen. We will continue to closely monitor her on oncology floor. Job ID: [id number]
[2019-11-09] MEDS: Azithromycin 500 MG in Sodium Chloride 0.9% 250 ML 250 ML IVPB SCH (16:26)
[2019-11-09] MEDS: Gabapentin 300 MG CAP PO SCH ×2 (16:42→20:06)
[2019-11-09] MEDS: Cefepime 1 GM in Sodium Chloride 0.9% 100 ML IVPB SCH (16:42)
--- NOTE | 2019-11-09 17:02 | CON ---
DATE OF CONSULTATION: 11/09/2019 REASON FOR CONSULTATION: Shortness of breath. HISTORY OF PRESENT ILLNESS: Ms. Steinberg is a 69-year-old female, who has metastatic colon cancer to the lung and is currently on Lonsurf and Avastin. She presented to our clinic this morning for treatment and was having shortness of breath, weakness. Her O2 saturation was 84% on room air. She was brought to the emergency room for evaluation and underwent a CT angio, which was negative for pulmonary emboli. There was scattered airspace opacities of the left upper lobe, left lower lobe, and right lower lobe suspicious for pneumonia. The patient has been on treatment for metastatic colon cancer since 2012. She is followed by MD Kenny and Dr. Ho. Her last CT scan in August 2019 showed improvement in her large right upper lobe mass. This mass was inseparable from the mediastinum and posterior chest wall, but had decreased in size. She also had satellite nodules in the right lung base. Her right hilar mass was infiltrating the adjacent mediastinum and had a mass effect on the vascular structures in August. She was seen at bedside with her present. She has no fever, chills, or night sweats. She did have hemoptysis last week with worsening short of breath. Since admission, she has been given IV steroids, IV fluids, and antibiotics. She is resting comfortably at this time. PAST MEDICAL HISTORY: 1. Metastatic adenocarcinoma of the colon with lung metastasis. 2. 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 3. Anal cancer in 2014. 4. History of peripheral neuropathy. 5. Hypertension. PAST SURGICAL HISTORY: 1. Hysterectomy. 2. Colectomy. 3. MAY. ALLERGIES: NO KNOWN DRUG ALLERGIES. HOME MEDICATIONS: 1. Colace. 2. Gabapentin. 3. Hydrocodone. 4. Norvasc. 5. Metoprolol. FAMILY HISTORY: Noncontributory. SOCIAL HISTORY: , lives with her spouse. No alcohol, tobacco, or illicit drug use. REVIEW OF SYSTEMS: A 10-point review of systems is negative except for noted in HPI. PHYSICAL EXAMINATION: VITAL SIGNS: Temperature 97.6, pulse is 85, respiratory rate 16, BP is 127/61, she is 92% on 2 L. GENERAL: This is a chronically ill-appearing female, in no acute distress. HEENT: Normocephalic, atraumatic. Pupils are equal and reactive to light. NECK: Supple. CV: Regular rate and rhythm. LUNGS: Diminished anterior. ABDOMEN: Soft and nontender. Bowel sounds are positive. EXTREMITIES: No clubbing or cyanosis. SKIN: No rash. HEMATOLOGICAL: No petechiae or purpura. NEUROLOGICAL: Nonfocal. PERTINENT LABORATORY DATA AND X-RAYS: Current WBCs are 5.4, hemoglobin 10, hematocrit 31.4, platelet count 168,000, she has 78% neutrophils, 11% lymphocytes. Sodium 137, potassium 4.3, chloride 98, CO2 is 28, BUN is 17, creatinine 0.81, calcium 9.6, bilirubin 0.5, AST is 14, ALT is 8, alkaline phosphatase is 97. Troponin is negative. Serum total protein is 7.4, albumin 4.0, globulin 3.4. Radiology per history of present illness. ASSESSMENT: 1. Community-acquired pneumonia. 2. Stage IV colon cancer with lung metastasis. 3. Hypoxia. DISCUSSION: The patient is on antibiotics and steroids. Her oxygen saturation has improved with O2 and nasal cannula. Her home medications have been continued. When compared to the CT scan at [facility] in August, it appears that she has stable disease in her lungs. She had some opacities in August that were concerning for pneumonia as well. Apparently, did receive antibiotics at that time. Her COVID-19 test is currently pending. Would continue the antibiotics and steroids for the next 24 to 48 hours. Hopefully, she can be discharged home. She may be a candidate for home oxygen therapy. Case has been discussed with Dr. Ho and we will follow along with her hospital course. Job ID: [id number]
[2019-11-09] MEDS: Albuterol 200 PUFF (6.7GM INHALER) INH SCH (19:04)
[2019-11-09] MEDS: Famotidine 20 MG TAB PO SCH (20:06)
[2019-11-09] MEDS: Megestrol Acetate 40 MG TAB PO SCH (20:06)
[2019-11-09] MEDS: Senokot S 8.6-50 MG TAB PO SCH (20:06)
[2019-11-09] MEDS ORDERED: Melatonin 3 MG TAB PO PRN (20:24)
[2019-11-09] MEDS: Acetaminophen 325 MG TAB PO PRN (21:35)
[2019-11-09] MEDS: methylPREDNISolone Sod Succ 40 MG VIAL IVP SCH (21:36)
[2019-11-10] MEDS: Albuterol 200 PUFF (6.7GM INHALER) INH SCH ×4 (00:04→18:23)
[2019-11-10] MEDS: HYDROcodone/Acetaminophen 5/325 mg Tablet PO PRN ×4 (03:13→22:40)
[2019-11-10] MEDS: Sodium Chloride 0.9% 1,000 ML IV SCH (03:14)
[2019-11-10] MEDS: Gabapentin 300 MG CAP PO PRN (03:15)
[2019-11-10 03:39] LABS: #Lymphocytes 0.3 thou/uL (1.20-3.40); #Monocytes 0.1 thou/uL (0.11-0.59); #Neutrophils 2.8 thou/uL (1.40-6.50); %Lymphocytes 9.7 % (21.0-51.0); %Monocytes 2.2 % (0.0-10.0); %Neutrophils 88.2 % (42.0-75.0); Mean Corpuscular Hemoglobin 35.7 pg (27.0-31.0); Mean Platelet Volume 8.8 fL (7.4-10.4); Platelet Count 138 thou/uL (130-400); RBC Distribution Width 20.8 % (11.5-14.5); Red Blood Cell (RBC) Count 2.24 mill/uL (4.20-5.40); White Blood Cell (WBC) Count 3.1 thou/uL (4.8-10.8)
[2019-11-10] MEDS: Cefepime 1 GM in Sodium Chloride 0.9% 100 ML IVPB SCH ×2 (03:54→15:32)
[2019-11-10 04:04] LABS: Anion Gap 10 mmol/L (10-20); BUN (Urea Nitrogen) 13 mg/dL (9.8-20.1); Calc. Creatinine Clearance 66 mL/min (70-130); Calcium 8.5 mg/dL (7.8-10.44); Carbon Dioxide 28 mmol/L (23-31); Chloride 103 mmol/L (98-107); Estimated GFR-MDRD 90; Glucose 147 mg/dL (80-115); Potassium 4.2 mmol/L (3.5-5.1); Sodium 137 mmol/L (136-145)
[2019-11-10] MEDS: Gabapentin 300 MG CAP PO SCH ×4 (06:29→20:20)
[2019-11-10] MEDS: methylPREDNISolone Sod Succ 40 MG VIAL IVP SCH ×3 (06:29→22:35)
[2019-11-10] MEDS: Famotidine 20 MG TAB PO SCH ×2 (09:12→20:20)
[2019-11-10] MEDS: Megestrol Acetate 40 MG TAB PO SCH ×2 (09:12→20:20)
[2019-11-10] MEDS: Amlodipine 5 MG TAB PO SCH (09:12)
[2019-11-10] MEDS: Senokot S 8.6-50 MG TAB PO SCH ×2 (09:12→20:20)
[2019-11-10] MEDS: Enoxaparin Sodium 40 MG/0.4 ML SYRINGE SC SCH (09:25)
[2019-11-10 11:54] LABS: SARS-CoV-2 MS2 Positive; SARS-CoV-2 N Gene Negative; SARS-CoV-2 S Gene Negative; SARS-CoV-2 by NAA Not Detected (NotDetected); SARS-CoV-2 orf1ab Negative
[2019-11-10] MEDS: Acetaminophen 325 MG TAB PO PRN ×2 (14:23→20:20)
[2019-11-10] MEDS: Azithromycin 500 MG in Sodium Chloride 0.9% 250 ML 250 ML IVPB SCH (14:25)
[2019-11-10] MEDS ORDERED: diphenhydrAMINE 25 MG CAP PO PRN (16:05)
[2019-11-10] MEDS ORDERED: diphenhydrAMINE 50 MG CAP PO PRN (16:05)
--- NOTE | 2019-11-10 16:08 | PDOC.MOPN ---
Interval History: ambulatory in room. O2 sats 94% on room air. - Vital Signs Vital Signs: Vital Signs (12 hours) Temp Pulse Resp BP Pulse Ox Pulse Ox Pulse Ox 11/10/19 15:42 97.7 F 89 18 156/68 H 94 L 11/10/19 12:00 98.1 F 100 18 130/70 96 11/10/19 09:34 93 L 96 11/10/19 09:12 92 11/10/19 08:00 97.8 F 92 16 144/68 H 97 Weight Admit Weight 115 lb 3.2 oz Weight 115 lb 3.2 oz - Physical Exam General: Alert, Oriented x3, No acute distress HEENT: Atraumatic, PERRLA, EOMI, Mucous membr. moist/pink Lungs: Clear to auscultation, Normal air movement Cardiovascular: Regular rate, Normal S1, Normal S2, No murmurs, Gallops, Rubs Abdomen: Normal bowel sounds, Soft, No tenderness, No hepatospenomegaly, No masses Neurological: Normal gait, Normal speech, Strength at 5/5 X4 ext, Normal tone, Sensation intact, Cranial nerves 3-12 NL, Reflexes 2+ - Labs Result Diagrams: 11/10/19 03:22 11/10/19 03:22 Lab results: Laboratory Results - last 24 hr 11/10/19 03:22: WBC 3.1 L, RBC 2.24 L, Hgb 8.0 L, Hct 24.3 L, MCV 108.0 H, MCH 35.7 H, MCHC 33.0, RDW 20.8 H, Plt Count 138, MPV 8.8, Neutrophils % 88.2 H, L ymphocytes % 9.7 L, Monocytes % 2.2, Eosinophils % 0.0, Basophils % 0.0, Neutrophils # 2.8, Lymphocytes # 0.3 L, Monocytes # 0.1 L, Eosinophils # 0.0, Basophils # 0.0 11/10/19 03:22: Sodium 137, Potassium 4.2, Chloride 103, Carbon Dioxide 28, Anion Gap 10, BUN 13, Creatinine 0.65, Estimated GFR (MDRD) 90, Glucose 147 H, Calcium 8.5 11/09/19 13:22: SARS-CoV-2 (PCR) Not Detected Status: lab reviewed by me A/P - Problem (1) Colon carcinoma metastatic to lung Current Visit: Yes Code(s): C18.9 - MALIGNANT NEOPLASM OF COLON, UNSPECIFIED; C78.00 - SECONDARY MALIGNANT NEOPLASM OF UNSPECIFIED LUNG Status: Acute - Plan Plan: continue abx, nebs benadryl for insomnia home in AM with oral abx if improved. follow-up clinic.
[2019-11-10] MEDS: Ondansetron PF 4 MG/2 ML Vial IVP PRN ×2 (16:43→22:35)
--- NOTE | 2019-11-10 18:04 | PDOC.HOSPP ---
- Subjective Encounter Date: 11/10/19 Encounter Time: 18:02 Subjective: Seen for follow-up regarding pneumonia. Reports feeling better. - Objective Vital Signs & Weight: Vital Signs (12 hours) Temp Pulse Resp BP Pulse Ox Pulse Ox Pulse Ox 11/10/19 15:42 97.7 F 89 18 156/68 H 94 L 11/10/19 12:00 98.1 F 100 18 130/70 96 11/10/19 09:34 93 L 96 11/10/19 09:12 92 11/10/19 08:00 97.8 F 92 16 144/68 H 97 Weight Admit Weight 115 lb 3.2 oz Weight 115 lb 3.2 oz I&O: 11/09/19 11/10/19 11/11/19 06:59 06:59 06:59 Intake Total 2270 Output Total 600 Balance 2270 -600 Result Diagrams: 11/10/19 03:22 11/10/19 03:22 Additional Labs: I reviewed patient's labs and MAR Hospitalist ROS - Review of Systems Cardiovascular: denies: chest pain, palpitations, orthopnea, paroxysmal noc. dyspnea, edema, light headedness Gastrointestinal: denies: nausea, vomiting, abdominal pain, diarrhea, constipation, melena, hematochezia - Medication Medications: Active Medications Generic Name Dose Route Start Last Admin Trade Name Freq PRN Reason Stop Dose Admin Acetaminophen 650 mg 11/09/19 14:35 11/10/19 14:23 Acetaminophen 325 Mg Tab PO 650 mg Q4H PRN Administration Headache/Fever/Mild Pain (1-3) Hydrocodone Bitart/Acetaminophen 1 tab 11/09/19 14:35 11/10/19 14:22 Hydrocodone/Acetaminophen 5/325 Mg Tablet PO 1 tab Q4H PRN Administration Moderate Pain (4-6) Albuterol Sulfate 2 puff 11/09/19 19:00 11/10/19 14:25 Albuterol 200 Puff (6.7gm Inhaler) INH 2 puff [id number] [id number] Administration Amlodipine Besylate 5 mg 11/10/19 09:00 11/10/19 09:12 Amlodipine 5 Mg Tab PO 5 mg DAILY COLE Administration Enoxaparin Sodium 40 mg 11/10/19 09:00 11/10/19 09:25 Enoxaparin Sodium 40 Mg/0.4 Ml Syringe SC 40 mg 0900 COLE Administration Famotidine 20 mg 11/09/19 21:00 11/10/19 09:12 Famotidine 20 Mg Tab PO 20 mg BID COLE Administration Gabapentin 300 mg 11/09/19 14:35 11/10/19 03:15 Gabapentin 300 Mg Cap PO 300 mg DAILYPRN PRN Administration Pain Gabapentin 600 mg 11/09/19 16:00 11/10/19 16:43 Gabapentin 300 Mg Cap PO 600 mg 07,12,16,21 COLE Administration Sodium Chloride 1,000 mls @ 70 mls/hr 11/09/19 14:35 11/10/19 03:14 Normal Saline 0.9% IV 11/10/19 19:09 1,000 mls .[id number] COLE Administration Cefepime HCl 1 gm/ Sodium 100 mls @ 200 mls/hr 11/09/19 16:00 11/10/19 15:32 Chloride IVPB 100 mls 0400,1600 COLE Administration Azithromycin 500 mg/ Sodium 250 mls @ 250 mls/hr 11/09/19 15:00 11/10/19 14:25 Chloride IVPB 250 mls Q24HR COLE Administration Megestrol Acetate 40 mg 11/09/19 21:00 11/10/19 09:12 Megestrol Acetate 40 Mg Tab PO 40 mg BID COLE Administration Melatonin 3 mg 11/09/19 20:24 11/09/19 21:35 Melatonin 3 Mg Tab PO 3 mg HS PRN Administration Insomnia Methylprednisolone Sodium Succinate 20 mg 11/09/19 22:00 11/10/19 13:07 Methylprednisolone Sod Succ 40 Mg Vial IVP 11/11/19 06:01 20 mg Q8HR COLE Administration Metoprolol Succinate 50 mg 11/10/19 09:00 11/10/19 09:12 Metoprolol Succinate Xl 50 Mg Tab PO 50 mg DAILY COLE Administration Ondansetron HCl 4 mg 11/09/19 14:35 11/10/19 16:43 Ondansetron Pf 4 Mg/2 Ml Vial IVP 4 mg Q6H PRN Administration Nausea/Vomiting Senna/Docusate Sodium 2 tab 11/09/19 21:00 11/10/19 09:12 Senokot S 8.6-50 Mg Tab PO 2 tab BID COLE Administration - Exam General Appearance: awake alert Eye: anicteric sclera ENT: moist mucosa Neck: supple Heart: RRR Respiratory: CTAB Gastrointestinal: soft Skin: no rashes Musculoskeletal: normal tone, normal strength Hosp A/P (1) Pneumonia Code(s): J18.9 - PNEUMONIA, UNSPECIFIED ORGANISM Status: Acute (2) HTN (hypertension) Code(s): I10 - ESSENTIAL (PRIMARY) HYPERTENSION Status: Chronic (3) Colon carcinoma metastatic to lung Code(s): C18.9 - MALIGNANT NEOPLASM OF COLON, UNSPECIFIED; C78.00 - SECONDARY MALIGNANT NEOPLASM OF UNSPECIFIED LUNG Status: Chronic - Plan Pt requesting vit b, c, d levels and TSH. Appreciate medical oncology input. Continue IV antibiotics for now, transition to oral antibiotics in AM. Likely home 24-48 h
[2019-11-10 19:37] LABS: Thyroid Stimulating Hormone 0.7074 uIU/mL (0.35-4.94); Vitamin D, 25 Hydroxy 23.8 ng/ml (> 30.0)
[2019-11-10 20:26] VITALS: TEMP 98.1
[2019-11-11] MEDS: Albuterol 200 PUFF (6.7GM INHALER) INH SCH ×2 (00:11→06:20)
[2019-11-11] MEDS: Cefepime 1 GM in Sodium Chloride 0.9% 100 ML IVPB SCH (05:08)
[2019-11-11] MEDS: Gabapentin 300 MG CAP PO PRN (05:08)
[2019-11-11] MEDS: Acetaminophen 325 MG TAB PO PRN (05:08)
[2019-11-11] MEDS: methylPREDNISolone Sod Succ 40 MG VIAL IVP SCH (05:08)
[2019-11-11 05:39] LABS: #Lymphocytes 0.4 thou/uL (1.20-3.40); #Monocytes 0.2 thou/uL (0.11-0.59); #Neutrophils 2.7 thou/uL (1.40-6.50); %Eosinophils 0.1 % (0.0-10.0); %Lymphocytes 13.3 % (21.0-51.0); %Monocytes 5.2 % (0.0-10.0); %Neutrophils 81.4 % (42.0-75.0); Hemoglobin 8.7 g/dL (12.0-16.0); Mean Corpuscular HGB CONC 32.2 g/dL (32.0-36.0); Mean Corpuscular Hemoglobin 34.8 pg (27.0-31.0); Mean Platelet Volume 8.5 fL (7.4-10.4); Platelet Count 171 thou/uL (130-400); RBC Distribution Width 20.9 % (11.5-14.5); White Blood Cell (WBC) Count 3.3 thou/uL (4.8-10.8)
[2019-11-11 05:59] LABS: Anion Gap 13 mmol/L (10-20); BUN (Urea Nitrogen) 11 mg/dL (9.8-20.1); Calc. Creatinine Clearance 62 mL/min (70-130); Calcium 9.3 mg/dL (7.8-10.44); Carbon Dioxide 27 mmol/L (23-31); Chloride 103 mmol/L (98-107); Estimated GFR-MDRD 83; Glucose 126 mg/dL (80-115); Potassium 4.1 mmol/L (3.5-5.1); Sodium 139 mmol/L (136-145)
[2019-11-11 08:02] VITALS: BP 135/65
[2019-11-11] MEDS: Famotidine 20 MG TAB PO SCH (08:03)
[2019-11-11] MEDS: Gabapentin 300 MG CAP PO SCH ×2 (08:03→11:41)
[2019-11-11] MEDS: Megestrol Acetate 40 MG TAB PO SCH (08:03)
[2019-11-11] MEDS: Senokot S 8.6-50 MG TAB PO SCH (08:03)
[2019-11-11] MEDS: Amlodipine 5 MG TAB PO SCH (08:04)
[2019-11-11] MEDS: Enoxaparin Sodium 40 MG/0.4 ML SYRINGE SC SCH (08:10)
[2019-11-11] MEDS ORDERED: Cholecalciferol 1,000 UNITS (25 MCG) TAB PO SCH (09:00)
[2019-11-11] MEDS ORDERED: Cefdinir 300 MG CAP PO SCH (09:00)
[2019-11-11] MEDS ORDERED: FLU VACC QS2020-21(65YR UP)/PF 240 MCG/0.7 ML SYRINGE IM ONE (11:30)
--- NOTE | 2019-11-11 23:38 | DIS ---
DATE OF ADMISSION: 11/09/2019 DATE OF DISCHARGE: 11/11/2019 PRIMARY CARE PROVIDER: Dr. Cody Barros. DISCHARGE DIAGNOSES: 1. Community-acquired pneumonia. 2. Vitamin D deficiency. CONDITION OF THE PATIENT ON THE DAY OF DISCHARGE: Stable. I assessed Ms. Steinberg on the day of discharge. She denies any chest pain or shortness of breath. Vital signs are stable. S1 and S2 are heard, regular. Lungs are clear to auscultation bilaterally. CONSULTATIONS DURING THIS HOSPITALIZATION: Oncology, [place] [facility]. DISCHARGE MEDICATIONS: She has been started on vitamin D2 of 50,000 units every week and Omnicef 300 mg two times a day, 12 more days. Otherwise, no change was made to her pre-admission home medications. HOSPITAL COURSE: Ms. Steinberg is a pleasant 69-year-old lady who was admitted to [facility] on November 09, 2019 for community-acquired pneumonia. Please refer to Dr. Jose's history and physical note dated November 09, 2019, for further details. She improved with intravenous antibiotics and was stepped down to oral antibiotics. She was seen by Oncology Service. She has been cleared for discharge. Her total 25-hydroxy vitamin D level was low at 23.8. TSH and vitamin B12 were normal. Vitamin B1, vitamin B6, and vitamin C levels are pending at the time of this dictation. She is advised to follow up with her primary care provider for the same. She is also advised to follow up with primary care provider for final blood culture results. At the time of this dictation, preliminary blood culture results are negative. COVID-19 PCR test was negative. Many thanks for allowing me to participate in your patient's care. Please feel free to contact me with any questions or concerns. POST-ACUTE CARE FOLLOWUP: With primary care provider in 3 days. ACTIVITY: As tolerated. DIET: Heart healthy. Please note that the patient ambulated in the hallways without any desaturations. DISCHARGE DESTINATION: Home. TIME SPENT: Total amount of time spent coordinating this discharge: 22 minutes. Job ID: [id number]
== END 2019-11-11 12:05 | disposition home or self-care (01) | DRG 194 ==
LOC: ERS 09:43 → ONC 12:33
PROVIDERS: ADMIT Internal Medicine; ATTEND Internal Medicine
DX: J18.9 Pneumonia, unspecified organism (principal); C19 Malignant neoplasm of rectosigmoid junction; C78.00 Secondary malignant neoplasm of unspecified lung; F41.9 Anxiety disorder, unspecified; G62.9 Polyneuropathy, unspecified; Z20.828 Contact with and (suspected) exposure to other viral communicable diseases; E55.9 Vitamin D deficiency, unspecified; Z90.710 Acquired absence of both cervix and uterus; Z79.899 Other long term (current) drug therapy
CPT/HCPCS: 36415; 71045; 71275; 80048; 80053; 82180; 82306; 82607; 84207; 84425; 84443; 84484; 85025; 85379; 87040; 87086; 87635; 87804; 90471; 90662; 93005; 96365; 96375; G0008; J0456; J0692; J0696; J1650; J2270; J2405; J2920; J3490; J7050; Q0163; Q9967; S0179; U0003

== ENCOUNTER 2019-11-22 16:26 | Inpatient (IN) | payer MEDICARE, OTHER ==
[2019-11-22 17:17] LABS: #Lymphocytes 1.1 thou/uL (1.20-3.40); #Monocytes 0.4 thou/uL (0.11-0.59); #Neutrophils 4.3 thou/uL (1.40-6.50); %Basophils 0.3 % (0.0-1.0); %Eosinophils 0.5 % (0.0-10.0); %Monocytes 7.1 % (0.0-10.0); %Neutrophils 74.1 % (42.0-75.0); Hemoglobin 9.6 g/dL (12.0-16.0); Mean Corpuscular HGB CONC 33.2 g/dL (32.0-36.0); Mean Corpuscular Hemoglobin 35.7 pg (27.0-31.0); Mean Platelet Volume 9.3 fL (7.4-10.4); Platelet Count 188 thou/uL (130-400); RBC Distribution Width 24.2 % (11.5-14.5); Red Blood Cell (RBC) Count 2.69 mill/uL (4.20-5.40); White Blood Cell (WBC) Count 5.9 thou/uL (4.8-10.8)
[2019-11-22 17:34] LABS: MDiff Complete? YES; Macrocytosis SLIGHT = 6-15 cells (100X) (0-5/hpf); Ovalocytes SLIGHT = 2-5 cells (100X) (0-1/hpf); Platelet Morphology Comment Appears Adequate; Polychromasia SLIGHT = 2-3 cells (100X) (0-2/hpf); Schistocytes SLIGHT = 2-5 cells (100X) (0-1/hpf); Stomatocytes SLIGHT = 2-5 cells (100X) (0-1/hpf); Tear Drops SLIGHT = 2-5 cells (100X) (0-1/hpf)
[2019-11-22 17:36] LABS: ALT (SGPT) 13 U/L (8-55); AST (SGOT) 25 U/L (5-34); Alkaline Phosphatase 77 U/L (40-110); Anion Gap 12 mmol/L (10-20); BUN (Urea Nitrogen) 17 mg/dL (9.8-20.1); Bilirubin, Total 0.7 mg/dL (0.2-1.2); Calc. Creatinine Clearance 0 mL/min (70-130); Calcium 9.1 mg/dL (7.8-10.44); Carbon Dioxide 24 mmol/L (23-31); Chloride 103 mmol/L (98-107); Estimated GFR-MDRD 81; Globulin 3.1 g/dL (2.4-3.5); Glucose 106 mg/dL (80-115); Potassium 4.2 mmol/L (3.5-5.1); Protein, Total 7.1 g/dL (6.0-8.3); Sodium 135 mmol/L (136-145)
[2019-11-22 18:04] LABS: CKMB 4.9 ng/mL (0-6.6)
[2019-11-22] MEDS ORDERED: Enoxaparin Sodium 60 MG/0.6 ML SYRINGE ONE ×3 (18:52→19:05)
[2019-11-22 19:29] LABS: Base Excess-Venous -1.7 mmol/L (-2.0 to 3.0); Bicarbonate (HCO3v) 22.4 mmol/L (22.0-28.0); CO2 Tension (PvCO2) 34.1 mmHg (40.0-50.0); Calcium, Ionized 1.15 mmol/L (1.15-1.33); Chloride 103 mmol/L (98-107); Hemoglobin - Calc 9.4 g/dL (12.0-16.0); Potassium 3.8 mmol/L (3.5-5.1); Sodium 135 mmol/L (138-145); T. Carbon Dioxide 23.4 mmol/L (22.0-28.0); vO2 Saturation-calc 75.6 % (60.0-85.0)
--- NOTE | 2019-11-22 19:48 | RAD ---
PORTABLE CHEST 11/22/19 HISTORY: Worsening shortness of breath, colorectal cancer with metastatic disease to the lungs. COMPARISON: A 11/09/19 exam. FINDINGS: Heart size is within normal limits. Right paratracheal mass density is again noted and parenchymal in filtrative lung changes in the left mid and upper lung blakely are all stable as compared to the prior exam. Nodular density in the right lung base also stable. IMPRESSION: Essentially stable exam. POS: OFF
--- NOTE | 2019-11-22 20:23 | CT ---
CT PULMONARY ANGIOGRAM WITH IV CONTRAST AND 3D POSTPROCESSIN11/22/19 HISTORY: 69-year-old female with shortness of breath, hypoxia, lung cancer. COMPARISON: 11/09/19 FINDINGS: There is good contrast opacification of the pulmonary arterial vasculature with multiple filling defe cts in the upper and lower lobe branches of the left pulmonary artery consistent with pulmonary embol ism. The thoracic aorta is well opacified without aneurysmal dissection. No pleural or pericardial ef fusions are seen. Interval development of small focal areas of consolidation are seen in the posteromedial aspect of th e left lower lobe. Remainder of the exam is otherwise stable. The right suprahilar mass with endobron chial lesions in the distal right main bronchus, air space consolidation with ground glass opacities in the left upper and mid lung zones are again seen. There are degenerative changes in the spine. The 1.6 cm right lower lobe nodule is stable. IMPRESSION: Findings are consistent with pulmonary embolism. Discussed over the telephone with ER physician, Dr. Jelani Miles at 7:04 p.m. POS: JUANA
[2019-11-22] MEDS ORDERED: Electrolyte Replacement Protoc 1 EACH EACH IVPB PRN (21:09)
[2019-11-22] MEDS ORDERED: Acetaminophen 325 MG TAB PO PRN (21:09)
[2019-11-22] MEDS ORDERED: Guaifenesin DM 100-10/5 ML UDCUP PO PRN (21:09)
--- NOTE | 2019-11-22 21:20 | PDOC.HHP ---
Hospitalist HPI - History of Present Illness Shortness of breath History of Present Illness: 69-year-old woman with a history of multiple cancers including colorectal cancer, squamous cell carcinoma of the tongue, adenocarcinoma the anus, metastatic lung cancer presented to the emergency department with a complaint of progressive shortness of breath which became worse today. Patient was recently treated for pneumonia and was oral taking antibiotics. She brought her neighbors oxygen which made her feel better. Her oxygen saturation in the ED was in the mid 80s. Patient was placed on 4 L of oxygen by nasal cannula which improved her SPO2 to 92%. CTA thorax done in the ED demonstrated peripheral p ulmonary embolism involving the left pulmonary artery. CTA thorax also reported normal left upper lobe lung mass with endobronchial lesions. Patient given a short of full dose Lovenox. She was placed on high flow oxygen because she was not tolerating the 4 L oxygen by nasal cannula though with adequate saturation. Patient is admitted for further management. Hospitalist ROS - Review of Systems Other: Patient denied any cough, she denied any hemoptysis. She endorsed some chest pain. She denied any fever Except as documented, all other systems reviewed and negative. - Medication Medications: Medication Instructions Recorded Confirmed Type Gabapentin [Neurontin] 600 mg PO 07,12,16,21 11/03/12 11/22/19 History Gabapentin 300 mg PO DAILY PRN 05/15/14 11/22/19 History Acetaminophen [Pain Relief] 500 mg PO Q4HR PRN 05/04/17 11/22/19 History Acetaminophen/Diphenhydramine 1 each PO HS PRN 12/06/18 11/22/19 History [Tylenol Pm Ex-Strength Caplet] Amlodipine [Norvasc] 5 mg PO BID 12/06/18 11/22/19 History HYDROcodone/Acetaminophen [Sandoval 0.5 each PO Q4H PRN 12/06/18 11/22/19 History 5-325 Tablet] Metoprolol Succinate [Toprol XL] 50 mg PO BID 12/07/18 11/22/19 History Docusate [Colace] 100 mg PO PRN PRN 11/09/19 11/22/19 History Albuterol Sulfate [Proventil Hfa] 2 puff INH Q6H PRN #1 inh 11/11/19 11/22/19 Rx Cefdinir 300 mg PO Q12HR #24 capsule 11/11/19 11/22/19 Rx Ergocalciferol (Vitamin D2) 50,000 unit PO Q7D #4 capsule 11/11/19 11/22/19 Rx [Vitamin D2] Bevacizumab-Awwb [Mvasi] 0 - 16 ml IV ASDIR 11/22/19 11/22/19 History Ondansetron [Zofran ODT] 8 mg PO TID 11/22/19 11/22/19 History Trifluridine/Tipiracil HCl 1 each PO ASDIR 11/22/19 11/22/19 History [Lonsurf 15 mg-6.14 mg Tablet] Hospitalist History - Past Medical History Heme/Onc: reports: Cancer Other Medical History: Hypertension, dyslipidemia, peripheral neuropathy, history of, 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 - Past Surgical History Other Surgical History: Lung biopsy, Mediport on the right subclavian, colon resection, melanomas removed. - Family History Family History: reports: cancer (Mother.) Other Family History: Father had melanoma. - Social History Alcohol: reports: None Drugs: reports: none Living Situation: With Family - Exam General Appearance: ill appearing General - other findings: Mild respiratory distress. Eye: PERRL, anicteric sclera ENT: normocephalic atraumatic, no oropharyngeal lesions, moist mucosa Neck: supple, symmetric, no JVD Heart: RRR, no murmur, no rubs Respiratory: no wheezes Respiratory - other findings: Coarse bibasilar crackles. Gastrointestinal: soft, non-tender, non-distended, normal bowel sounds Extremities: no cyanosis, no edema Skin: normal turgor, no rashes Neurological: cranial nerve grossly intact, no weakness, no focal deficits Musculoskeletal: normal tone, normal strength Psychiatric: normal behavior, A&O x 3 Psychiatric - other findings: Dysphoric Hospitalist Results - Labs Result Diagrams: 11/23/19 03:24 11/23/19 03:24 Lab results: WBC 5.9 thou/uL (4.8-10.8) 11/22/19 17:06 Hgb 9.6 g/dL (12.0-16.0) L 11/22/19 17:06 Hct 28.9 % (36.0-47.0) L 11/22/19 17:06 MCV 108.0 fL (78.0-98.0) H 11/22/19 17:06 Plt Count 188 thou/uL (130-400) 11/22/19 17:06 Neutrophils % 74.1 % (42.0-75.0) 11/22/19 17:06 VBG pCO2 34.1 mmHg (40.0-50.0) L 11/22/19 19:29 VBG pO2 39.1 mmHg (35.0-45.0) 11/22/19 19:29 Sodium 135 mmol/L (136-145) L 11/22/19 17:06 Potassium 4.2 mmol/L (3.5-5.1) 11/22/19 17:06 Chloride 103 mmol/L (98-107) 11/22/19 17:06 Carbon Dioxide 24 mmol/L (23-31) 11/22/19 17:06 BUN 17 mg/dL (9.8-20.1) 11/22/19 17:06 Creatinine 0.71 mg/dL (0.6-1.1) 11/22/19 17:06 Glucose 106 mg/dL (80-115) 11/22/19 17:06 Calcium 9.1 mg/dL (7.8-10.44) 11/22/19 17:06 Total Bilirubin 0.7 mg/dL (0.2-1.2) 11/22/19 17:06 AST 25 U/L (5-34) 11/22/19 17:06 ALT 13 U/L (8-55) 11/22/19 17:06 Alkaline Phosphatase 77 U/L (40-110) 11/22/19 17:06 CK-MB (CK-2) 4.9 ng/mL (0-6.6) 11/22/19 17:06 Troponin I 0.607 ng/mL (< 0.028) H* 11/22/19 17:06 Serum Total Protein 7.1 g/dL (6.0-8.3) 11/22/19 17:06 Albumin 4.0 g/dL (3.4-4.8) 11/22/19 17:06 - Radiology Interpretation CT scan - chest Status: report reviewed by me (Multiple filling defects in the upper and lower lobe branches of the left pulmonary artery consistent with pulmonary embolism.) Hospitalist H&P A/P - Problem (1) Acute respiratory failure with hypoxia Code(s): J96.01 - ACUTE RESPIRATORY FAILURE WITH HYPOXIA Status: Acute (2) Acute pulmonary embolism Code(s): I26.99 - OTHER PULMONARY EMBOLISM WITHOUT ACUTE COR PULMONALE Status: Acute (3) Metastasis to lung Code(s): C78.00 - SECONDARY MALIGNANT NEOPLASM OF UNSPECIFIED LUNG Status: Acute (4) Lung mass Code(s): R91.8 - OTHER NONSPECIFIC ABNORMAL FINDING OF LUNG FIELD Status: Acute - Plan Plan: Admit patient to the IMCU. Treat with full dose Lovenox. Obtain echocardiogram. Consult to pulmonary. Patient is currently high flow oxygen. Titrate oxygen. Home oxygen qualification on discharge. Empiric IV Levaquin Bronchodilators prn. Continue home dose chemotherapy.
--- NOTE | 2019-11-22 21:28 | PDOC.FMACP ---
Advance Care Planning - Problem (1) Acute respiratory failure with hypoxia Status: Acute Code(s): J96.01 - ACUTE RESPIRATORY FAILURE WITH HYPOXIA (2) Acute pulmonary embolism Status: Acute Code(s): I26.99 - OTHER PULMONARY EMBOLISM WITHOUT ACUTE COR PULMONALE (3) Metastasis to lung Status: Acute Code(s): C78.00 - SECONDARY MALIGNANT NEOPLASM OF UNSPECIFIED LUNG (4) Lung mass Status: Acute Code(s): R91.8 - OTHER NONSPECIFIC ABNORMAL FINDING OF LUNG FIELD - Note Summary: Advanced Care Planning was discussed. The diagnosis, prognosis and goals of care were discussed. Appropriate forms and documentation to accomplish the goal s of care were discussed. All questions were answered. Patient wishes to be DO NOT INTUBATE but want CPR. is the documented MPOA. No living will. Time Spent (mins): 18
[2019-11-22 21:42] LABS: Critical Call Chem Troponin I RESULT DECREASING; Troponin I 0.538 ng/mL (< 0.028)
[2019-11-22] MEDS: Gabapentin 300 MG CAP PO PRN (22:53)
[2019-11-22] MEDS ORDERED: diphenhydrAMINE 25 MG CAP PO SCH (23:30)
[2019-11-22] MEDS ORDERED: Amlodipine 5 MG TAB PO SCH (23:30)
[2019-11-23 00:21] LABS: Critical Call Chem Troponin I RESULT DECREASING; Troponin I 0.497 ng/mL (< 0.028)
[2019-11-23] MEDS: Albuterol Sulfate 2.5 mg/3 ml Neb NEB SCH ×4 (00:38→19:23)
[2019-11-23] MEDS: HYDROcodone/Acetaminophen 5/325 mg Tablet PO PRN ×3 (00:45→11:53)
[2019-11-23 04:13] LABS: Anion Gap 12 mmol/L (10-20); BUN (Urea Nitrogen) 17 mg/dL (9.8-20.1); Calc. Creatinine Clearance 64 mL/min (70-130); Calcium 8.3 mg/dL (7.8-10.44); Carbon Dioxide 22 mmol/L (23-31); Chloride 104 mmol/L (98-107); Estimated GFR-MDRD 84; Glucose 92 mg/dL (80-115); Potassium 3.6 mmol/L (3.5-5.1); Sodium 134 mmol/L (136-145)
[2019-11-23 04:30] LABS: Band 8 % (5-11); Eosinophils 1 % (0-10); Hemoglobin 8.1 g/dL (12.0-16.0); Lymphocytes 21 % (21-51); MDiff Complete? YES; Mean Corpuscular HGB CONC 33.1 g/dL (32.0-36.0); Mean Corpuscular Hemoglobin 35.4 pg (27.0-31.0); Mean Platelet Volume 9.5 fL (7.4-10.4); Monocytes 10 % (0-10); Neutrophil 60 % (42-75); Platelet Count 154 thou/uL (130-400); RBC Distribution Width 24.3 % (11.5-14.5); Red Blood Cell (RBC) Count 2.28 mill/uL (4.20-5.40); White Blood Cell (WBC) Count 4.8 thou/uL (4.8-10.8)
[2019-11-23] MEDS: Amlodipine 5 MG TAB PO SCH ×2 (08:04→20:50)
[2019-11-23] MEDS: Famotidine/PF 20 mg/2ml Vial SLOW IVP SCH ×2 (08:05→20:52)
[2019-11-23] MEDS: Gabapentin 300 MG CAP PO PRN ×2 (08:05→22:19)
[2019-11-23] MEDS ORDERED: Enoxaparin Sodium 60 MG/0.6 ML SYRINGE SC SCH ×3 (09:00)
--- NOTE | 2019-11-23 11:20 | CON ---
DATE OF CONSULTATION: HISTORY OF PRESENT ILLNESS: Huyen Steinberg is a 69-year-old female with apparently history of metastatic colon, head, and neck cancer, who was recently discharged here with a diagnosis of presumed community-acquired pneumonia. Last night, she presented with chest pain and hypoxemia. CT of chest revealed evidence of pulmonary emboli mainly in the left lung. She says she has never smoked. Denies any prior history of TB, pneumonia, or bronchial asthma. She has been severely deconditioned. She has recent diagnosis of several cancers. She denies any coughing or wheezing. PAST MEDICAL HISTORY: 1. Colorectal cancer with presumed metastasis to the lung since 2009. 2. History of apparently head and neck cancer. 3. History of mild hypertension. 4. Chronic pain. PAST SURGICAL HISTORY: Otherwise included hysterectomy, colon resection. She had a CT-guided biopsy in 2018, which showed metastatic colon carcinoma as per the notes. She has also gone to [facility] for routine workup. HOME MEDICATIONS: Include; 1. Lonsurf. 2. Zofran. 3. Toprol-XL 50. 4. Hydrocodone. 5. Neurontin 600. 6. Gabapentin. 7. Mvasi. 8. Albuterol inhaler. ALLERGIES: NONE. TOBACCO: None. ALCOHOL: None. REVIEW OF SYSTEMS: Ten-point negative. PHYSICAL EXAMINATION: GENERAL: She appears to be in no acute distress. She is cachectic. VITAL SIGNS: Sats are 95% to 98%, blood pressure 110/72, respiratory rate 18, pulse 80. CHEST: No wheezing. No crackles. CARDIAC: Normal S1, S2. No gallops. ABDOMEN: No masses. NEUROLOGIC: Awake, alert, responsive. LABORATORY DATA: Lytes are normal. Sodium is 134. Troponin is elevated. X-ray shows a large right upper lung mass, left-sided infiltrate. CT of chest report last night read as pulmonary emboli, right suprahilar mass, and left-sided infiltrate is also present. IMPRESSION: 1. Pulmonary emboli. 2. Colorectal cancer with metastasis to the lung. 3. Cachexia. 4. Apparently, head and neck cancer in the past per history. 5. History of hypertension. PLAN: She is on Lovenox, continue. Probably switch over to Eliquis in the next several days. Otherwise, continue supportive care. Will notify Oncology about admission. Consultation note, 70 minutes, 50% direct patient care. Job ID: [id number]
[2019-11-23] MEDS: Gabapentin 300 MG CAP PO SCH ×3 (11:53→20:49)
--- NOTE | 2019-11-23 14:23 | PDOC.HOSPP ---
- Subjective Encounter Date: 11/23/19 Encounter Time: 14:15 Subjective: f/u for PE's in context of metastatic colon CA on chemotherapy/Lovenox. Remains on O2 @ 4L/min NC. - Objective Vital Signs & Weight: Vital Signs (12 hours) Temp Pulse Pulse Pulse Resp BP BP 11/23/19 13:39 81 19 11/23/19 10:50 83 85 94/64 11/23/19 08:04 85 111/72 11/23/19 08:00 11/23/19 04:00 98.6 F BP Pulse Ox 11/23/19 13:39 95 11/23/19 10:50 100/62 11/23/19 08:04 11/23/19 08:00 94 L 11/23/19 04:00 Weight Weight 117 lb Most Recent Monitor Data Heart Rate from ECG 84 NIBP 130/80 NIBP BP-Mean 96 Respiration from ECG 24 SpO2 95 I&O: 11/22/19 11/23/19 11/24/19 06:59 06:59 06:59 Intake Total 900 Output Total 600 Balance 300 Result Diagrams: 11/23/19 03:24 11/23/19 03:24 Additional Labs: Laboratory Tests 11/22/19 11/22/19 11/22/19 17:06 17:06 21:04 Hgb 9.6 L Troponin I 0.607 H* 0.538 H* 11/22/19 23:49 Hgb Troponin I 0.497 H* Radiology Reviewed by me: Yes (CTA chest - multiple L-sided PE's) EKG Reviewed by me: Yes (Tele - SR) Hospitalist ROS - Medication Medications: Active Medications Generic Name Dose Route Start Last Admin Trade Name Freq PRN Reason Stop Dose Admin Hydrocodone Bitart/Acetaminophen 1 tab 11/23/19 00:42 11/23/19 11:53 Hydrocodone/Acetaminophen 5/325 Mg Tablet PO 1 tab Q4H PRN Administration Moderate Pain (4-6) Albuterol Sulfate 2.5 mg 11/23/19 01:00 11/23/19 13:39 Albuterol Sulfate 2.5 Mg/3 Ml Neb NEB 2.5 mg [id number] COLE Administration Amlodipine Besylate 5 mg 11/23/19 09:00 11/23/19 08:04 Amlodipine 5 Mg Tab PO 5 mg BID COLE Administration Enoxaparin Sodium 50 mg 11/23/19 09:00 11/23/19 08:05 Enoxaparin Sodium 60 Mg/0.6 Ml Syringe SC 50 mg 0900,2100 COLE Administration Famotidine 20 mg 11/23/19 09:00 11/23/19 08:05 Famotidine/Pf 20 Mg/2ml Vial SLOW IVP 20 mg Q12HR COLE Administration Gabapentin 600 mg 11/23/19 11:30 11/23/19 11:53 Gabapentin 300 Mg Cap PO 600 mg 0700,1130,1630,2130 COLE Administration Levofloxacin 500 mg/ Device 100 mls @ 100 mls/hr 11/22/19 23:00 11/22/19 23:25 IVPB 100 mls 2300 COLE Administration Metoprolol Succinate 50 mg 11/23/19 09:00 11/23/19 08:04 Metoprolol Succinate Xl 50 Mg Tab PO 50 mg BID COLE Administration - Exam General Appearance: NAD, awake alert Eye: PERRL, anicteric sclera ENT: normocephalic atraumatic, no oropharyngeal lesions Neck: supple, symmetric, no JVD, no thyromegaly, no lymphadenopathy Heart: RRR, no gallops, no rubs, normal peripheral pulses Heart - other findings: S1, S2 Respiratory - other findings: scattered coarse sounds, diminished in bases Gastrointestinal: soft, non-tender, non-distended, normal bowel sounds, no palpable masses Extremities: no cyanosis, no clubbing, no edema Skin: normal turgor, no lesions Neurological: cranial nerve grossly intact, no new deficit Musculoskeletal: normal tone, generalized weakness Psychiatric: normal affect, A&O x 3 Hosp A/P (1) Acute pulmonary embolism Code(s): I26.99 - OTHER PULMONARY EMBOLISM WITHOUT ACUTE COR PULMONALE Status: Acute Plan: Predominance of L hemithorax, continue Lovenox with plans to transition to Eliquis prior to d/c, check LE dopplers today (2) Acute respiratory failure with hypoxia Code(s): J96.01 - ACUTE RESPIRATORY FAILURE WITH HYPOXIA Status: Acute Plan: Continue O2 supplementation, may need home O2 (3) Type 2 acute myocardial infarction Code(s): I21.A1 - MYOCARDIAL INFARCTION TYPE 2 Status: Acute Plan: Likely due to demand state in context of PE's, consult Cardiology for any further recommendations, 2D echo pending (4) Malignant neoplasm of anorectum Code(s): C21.8 - MALIG NEOPLASM OF OVRLP SITES OF RECTUM, ANUS AND ANAL CANAL Status: Acute Plan: Resume outpt chemotherapy after consulting medical oncology service (5) Peripheral neuropathy Code(s): G62.9 - POLYNEUROPATHY, UNSPECIFIED Status: Chronic Plan: Continue Gabapentin, [place] PRN - Plan plan discussed w/ family, continue antibiotics, PT/OT, web content & social media manager, respiratory therapy Continue Lovenox Resume home Gabapentin Pain control as clinically indicated Consult Cardiology service 2D echo pending BLE doppler pending AM lab: BMP, CBC Transfer to Oncology floor
[2019-11-23 14:46] VITALS: BMI 18.3
[2019-11-23] MEDS ORDERED: HYDROcodone/Acetaminophen 5/325 mg Tablet PO PRN (14:50)
[2019-11-23] MEDS ORDERED: Albuterol Sulfate 2.5 mg/3 ml Neb NEB PRN (15:09)
[2019-11-23 16:08] LABS: SARS-CoV-2 MS2 Positive; SARS-CoV-2 N Gene Negative; SARS-CoV-2 S Gene Negative; SARS-CoV-2 by NAA Not Detected (NotDetected); SARS-CoV-2 orf1ab Negative
[2019-11-23] MEDS: Ondansetron ODT 8 MG TAB PO SCH ×2 (16:29→22:00)
[2019-11-23] MEDS ORDERED: Megestrol Acetate 800 MG/20 ML UDCUP PO SCH (16:30)
[2019-11-23] MEDS ORDERED: diphenhydrAMINE 25 MG CAP PO PRN (16:33)
[2019-11-23] MEDS ORDERED: Acetaminophen 500 MG TAB PO PRN (16:33)
[2019-11-23] MEDS ORDERED: Ergocalciferol 1.25 MG(50,000 UNITS) CAP PO SCH (17:00)
[2019-11-23] MEDS ORDERED: Dronedarone HCl 400 MG TAB PO SCH (18:00)
[2019-11-23] MEDS: Mometasone 200 MCG/Formoterol 5 MCG 120 PUFF INHALER INH SCH (19:22)
--- NOTE | 2019-11-23 20:20 | CON ---
DATE OF CONSULTATION: REASON FOR CONSULT: Metastatic colon cancer. HISTORY OF PRESENT ILLNESS: Ms. Steinberg is a 69-year-old female who has metastatic colon cancer to the lung and is currently on Lonsurf and Avastin. She was recently admitted to this facility at the end of October for shortness of breath when weakness. Her CT angio at that time was negative for pulmonary emboli. She was diagnosed with pneumonia, treated with antibiotics and discharged home. She did follow up in our clinic the next week and was doing well. She presented again to the emergency room yesterday with worsening shortness of breath. A CT angio at this time showed multiple filling deficits in the upper and lower branches of the left pulmonary artery consistent with pulmonary emboli. She was started on therapeutic Lovenox and admitted for hypoxia. She is on 4 L nasal cannula and saturating well. She denies any chest pain, shortness of breath. No abdominal discomfort. The patient has been tolerating her diet. PAST MEDICAL HISTORY: 1. Metastatic adenocarcinoma of the colon with lung mets. 2. History of squamous cell carcinoma of the base of the tongue in 2009. 3. Anal cancer 2014. 4. History of peripheral neuropathy. 5. Hypertension. 6. Recent admission for pneumonia. PAST SURGICAL HISTORY: 1. Hysterectomy. 2. Colectomy. 3. AVR. ALLERGIES: NO KNOWN DRUG ALLERGIES. HOME MEDICATIONS: 1. Gabapentin. 2. Lorazepam. 3. Amlodipine. 4. Metoprolol. 5. Lonsurf. 6. Hydrocodone. 7. Megace. FAMILY HISTORY: Noncontributory. SOCIAL HISTORY: , lives with her spouse. No alcohol, tobacco, or illicit drug use. REVIEW OF SYSTEMS: 12-point review of systems is negative except for noted in HPI. PHYSICAL EXAMINATION: VITAL SIGNS: Temperature 98.6, pulse is 79, respiratory rate is 21, BP is 111/71. She is 94% on 4 L. GENERAL: This is a well-developed, well-nourished female, in no acute distress. HEENT: Normocephalic and atraumatic. Pupils are equal and reactive to light. NECK: Supple. CV: Regular rate and rhythm. LUNGS: Clear. ABDOMEN: Soft and nontender. Bowel sounds are positive. EXTREMITIES: No clubbing or cyanosis. SKIN: No rash. HEMATOLOGICAL: No petechiae or purpura. NEUROLOGICAL: Nonfocal. PERTINENT LABORATORY DATA AND X-RAYS: Current WBCs are 4.8, hemoglobin 8.1, hematocrit 24.4, platelet count is 154,000, 60% neutrophils, 8% bands, 21% lymphocytes. Sodium 134, potassium 3.6, chloride 104, CO2 is 22, BUN is 17, creatinine 0.69, calcium 8.3, bilirubin 0.7, AST is 25, ALT is 13, alkaline phosphatase is 77, CK-MB is 4.9, troponin is 0.497. Serum total protein 7.1, albumin 4.0, globulin 3.1. Radiology per HPI. ASSESSMENT: 1. Acute pulmonary embolism. 2. Metastatic colon cancer with lung metastasis. 3. Recent hospitalization for pneumonia. DISCUSSION: The patient is on therapeutic Lovenox. We will switch her over to Eliquis. She is on antibiotics and oxygen and appears comfortable. She is due for followup with [facility] on December 03 to discuss any other treatment options. She is a CPR only code here. Palliative Care has seen the patient on this admission. The case has been discussed with Dr. Ho. The patient to be discharged when she is stable and we will follow up in our clinic after her [facility] visit. Thank you for the consult. Job ID: [id number] MTDShae
--- NOTE | 2019-11-23 20:25 | CON ---
DATE OF CONSULTATION: CONSULTING DOCTOR: Dr. Mike Forte. HISTORY OF PRESENT ILLNESS: Patient is a 69-year-old woman, with a history of colorectal carcinoma, who presented with increasing dyspnea. The patient was seen in 2016 with weakness. Patient subsequently underwent a cardiac catheterization and she was found to have normal left ventricular systolic function with normal coronary arteries. The patient has been undergoing chemotherapy for her colorectal carcinoma. She has known metastases to her lungs. The patient has had very limited mobility. She presented with increasing dyspnea. The patient was noted to have an elevated troponin level. The patient denies having any reports of noticing progressive shortness of breath and reported substernal chest discomfort. PAST MEDICAL HISTORY: 1. Colorectal carcinoma with metastases to the lung. 2. History of normal coronary arteries. 3. History of head and neck carcinoma. 4. Hypertension. PAST SURGICAL HISTORY: APR, hysterectomy, and colectomy. ALLERGIES: NONE. MEDICATIONS: See nursing list. SOCIAL HISTORY: Nonsmoker. PHYSICAL EXAMINATION: GENERAL: This is a pale woman, in no acute distress. VITAL SIGNS: Blood pressure 111/72. NECK: Shows no jugular venous distention. LUNGS: Clear to auscultation. HEART: Regular rate and rhythm. Normal S1, S2. No murmurs. ABDOMEN: Nondistended. EXTREMITIES: Show trace edema. VASCULAR: Radial pulse 2+. LABORATORY: White blood cell count 4.8, hemoglobin 8.1, hematocrit 24.4, and platelets 154. Sodium is 134, potassium 3.6, chloride 104, bicarbonate 22, BUN 17, and creatinine 0.69. Troponin 0.497. EKG revealed normal sinus rhythm with an otherwise unremarkable ECG. IMPRESSION: 1. Pulmonary emboli. 2. Elevated troponin level. 3. History of colorectal carcinoma. 4. History of head and neck carcinoma. 5. Hypertension. This woman presents with pulmonary embolus. She is on anticoagulation therapy. The patient had an elevated troponin level, most likely secondary to demand ischemia. She had a history of a normal cardiac catheterization. I will check the patient's echocardiogram. I would continue the patient on Lovenox and switch to Eliquis. We will follow this patient with you through her hospitalization. Job ID: [id number] MTDD
[2019-11-23] MEDS: diphenhydrAMINE 25 MG CAP PO SCH (20:50)
[2019-11-23] MEDS: Apixaban 5 MG TAB PO SCH (20:51)
[2019-11-24] MEDS: Albuterol Sulfate 2.5 mg/3 ml Neb NEB SCH ×4 (00:11→18:57)
[2019-11-24] MEDS: Mometasone 200 MCG/Formoterol 5 MCG 120 PUFF INHALER INH SCH ×2 (07:00→19:16)
[2019-11-24] MEDS: Gabapentin 300 MG CAP PO SCH ×4 (07:13→20:53)
[2019-11-24 07:16] LABS: Anion Gap 10 mmol/L (10-20); BUN (Urea Nitrogen) 13 mg/dL (9.8-20.1); Calc. Creatinine Clearance 60 mL/min (70-130); Calcium 8.6 mg/dL (7.8-10.44); Carbon Dioxide 26 mmol/L (23-31); Chloride 106 mmol/L (98-107); Estimated GFR-MDRD 74; Glucose 92 mg/dL (80-115); Potassium 4.2 mmol/L (3.5-5.1); Sodium 138 mmol/L (136-145)
--- NOTE | 2019-11-24 07:52 | ULT ---
EXAM: Bilateral lower extremity venous duplex ultrasound with color and spectral Doppler imaging: HISTORY: Bilateral lower extremity pain, history of pulmonary embolism COMPARISON: None FINDINGS: Exam performed from the groin to the ankle including the visualized greater saphenous, common femoral , superficial femoral, profunda femoral, popliteal, trifurcation, and posterior tibial veins. There is phasic flow with normal compressibility and normal augmentation at all examined levels. No evidence for intraluminal thrombus. IMPRESSION: No evidence for deep venous thrombosis.
[2019-11-24 09:01] LABS: #Lymphocytes 0.9 thou/uL (1.20-3.40); #Monocytes 0.4 thou/uL (0.11-0.59); #Neutrophils 3.2 thou/uL (1.40-6.50); %Basophils 0.2 % (0.0-1.0); %Eosinophils 0.6 % (0.0-10.0); %Monocytes 8.7 % (0.0-10.0); %Neutrophils 70.6 % (42.0-75.0); Hemoglobin 8.5 g/dL (12.0-16.0); Mean Corpuscular HGB CONC 32.5 g/dL (32.0-36.0); Mean Corpuscular Hemoglobin 35.8 pg (27.0-31.0); Mean Platelet Volume 9.6 fL (7.4-10.4); Platelet Count 138 thou/uL (130-400); RBC Distribution Width 24.2 % (11.5-14.5); Red Blood Cell (RBC) Count 2.38 mill/uL (4.20-5.40); White Blood Cell (WBC) Count 4.6 thou/uL (4.8-10.8)
[2019-11-24] MEDS: Apixaban 5 MG TAB PO SCH ×2 (09:37→20:50)
[2019-11-24] MEDS: predniSONE 20 MG TAB PO SCH (09:37)
[2019-11-24] MEDS: Amlodipine 5 MG TAB PO SCH ×2 (09:38→20:50)
[2019-11-24] MEDS: Famotidine/PF 20 mg/2ml Vial SLOW IVP SCH ×2 (09:39→20:51)
[2019-11-24] MEDS: Megestrol Acetate 800 MG/20 ML UDCUP PO SCH (09:40)
[2019-11-24] MEDS: Ondansetron ODT 8 MG TAB PO SCH ×3 (09:41→20:51)
[2019-11-24] MEDS: HYDROcodone/Acetaminophen 5/325 mg Tablet PO PRN ×2 (09:48→18:25)
--- NOTE | 2019-11-24 11:58 | PDOC.MOPN ---
Interval History: SOB with ambulating - Vital Signs Vital Signs: Vital Signs (12 hours) Temp Pulse Resp BP BP Pulse Ox 11/24/19 11:44 98.1 F 88 20 126/71 92 L 11/24/19 09:38 90 108/69 11/24/19 08:00 96 11/24/19 07:44 98.5 F 90 20 108/69 96 11/24/19 07:01 77 18 99 11/24/19 04:00 97.5 F L 85 20 126/65 92 L 11/24/19 00:11 79 16 93 L Weight Admit Weight 117 lb 14.4 oz Weight 123 lb 0.005 oz Most Recent Monitor Data Heart Rate from ECG 85 NIBP 104/70 NIBP BP-Mean 81 Respiration from ECG 22 SpO2 90 - Physical Exam General: Alert, Oriented x3, No acute distress HEENT: Atraumatic, PERRLA, EOMI, Mucous membr. moist/pink Lungs: Clear to auscultation Cardiovascular: Regular rate Abdomen: Normal bowel sounds Neurological: Normal gait, Normal speech, Strength at 5/5 X4 ext, Normal tone, Sensation intact, Cranial nerves 3-12 NL, Reflexes 2+ Psych/Mental Status: Mental status NL, Mood NL - Labs Result Diagrams: 11/24/19 08:30 11/24/19 08:30 Lab results: Laboratory Results - last 24 hr 11/24/19 08:30: WBC 4.6 L, RBC 2.38 L, Hgb 8.5 L, Hct 26.3 L, MCV 110.0 H, MCH 35.8 H, MCHC 32.5, RDW 24.2 H, Plt Count 138, MPV 9.6, Neutrophils % 70.6, Lymphocytes % 20.0 L, Monocytes % 8.7, Eosinophils % 0.6, Basophils % 0.2, Neutrophils # 3.2, Lymphocytes # 0.9 L, Monocytes # 0.4, Eosinophils # 0.0, Basophils # 0.0 11/24/19 08:30: Creatinine 0.80, Estimated GFR (MDRD) 71 11/24/19 06:24: Sodium 138, Potassium 4.2, Chloride 106, Carbon Dioxide 26, Anion Gap 10, BUN 13, Creatinine 0.77, Estimated GFR (MDRD) 74, Glucose 92, Calcium 8.6 11/22/19 19:10: SARS-CoV-2 (PCR) Not Detected Status: lab reviewed by me A/P - Problem (1) Acute pulmonary embolism Current Visit: Yes Code(s): I26.99 - OTHER PULMONARY EMBOLISM WITHOUT ACUTE COR PULMONALE Status: Acute (2) 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 Ho in clinic.
--- NOTE | 2019-11-24 12:09 | PRG ---
DATE OF SERVICE: 11/24/2019 SUBJECTIVE: This morning, she is better and less short of breath, but unfortunately is ambulating. Her saturations are dropping. OBJECTIVE: VITAL SIGNS: Temperature 98, pulse 90, respirations 20, saturations 96% on 4 L, blood pressure 108/69. CHEST: No wheezing. Prolonged expiration. CARDIAC: Normal S1 and S2. No gallops. ABDOMEN: No masses. ASSESSMENT: Bilateral pulmonary emboli, left greater than right; metastatic colon cancer to the lung; superimposed pneumonia. PLAN: She was switched over to Eliquis. She is on steroids, antibiotics, and neb treatments. We will follow. Job ID: [id number]
[2019-11-24] MEDS ORDERED: diphenhydrAMINE 25 MG CAP PO SCH (15:00)
--- NOTE | 2019-11-24 15:00 | PDOC.HOSPP ---
- Subjective Encounter Date: 11/24/19 Encounter Time: 14:45 Subjective: f/u for bilat PE's on Eliquis and O2 @ 3L/min NC. Feels shaky after receiving Duonebs. Appetite ok. No fever or productive cough. - Objective Vital Signs & Weight: Vital Signs (12 hours) Temp Pulse Resp BP BP Pulse Ox 11/24/19 12:18 76 18 98 11/24/19 11:44 98.1 F 88 20 126/71 92 L 11/24/19 09:38 90 108/69 11/24/19 08:00 96 11/24/19 07:44 98.5 F 90 20 108/69 96 11/24/19 07:01 77 18 99 11/24/19 04:00 97.5 F L 85 20 126/65 92 L Weight Admit Weight 117 lb 14.4 oz Weight 123 lb 0.005 oz Most Recent Monitor Data Heart Rate from ECG 85 NIBP 104/70 NIBP BP-Mean 81 Respiration from ECG 22 SpO2 90 I&O: 11/23/19 11/24/19 11/25/19 06:59 06:59 06:59 Intake Total 900 1365 Output Total 600 Balance 300 1365 Result Diagrams: 11/24/19 08:30 11/24/19 08:30 Additional Labs: Laboratory Tests 11/22/19 11/22/19 11/22/19 17:06 17:06 19:10 Hgb 9.6 L Troponin I 0.607 H* SARS-CoV-2 (PCR) Not Detected 11/22/19 11/22/19 11/23/19 21:04 23:49 03:24 Hgb 8.1 L Troponin I 0.538 H* 0.497 H* SARS-CoV-2 (PCR) Radiology Reviewed by me: Yes (Echo - EF 60-65%, grade I/III diast dysfxn; BLE dopp - neg DVT) Hospitalist ROS - Medication Medications: Active Medications Generic Name Dose Route Start Last Admin Trade Name Freq PRN Reason Stop Dose Admin Hydrocodone Bitart/Acetaminophen 1 tab 11/23/19 00:42 11/24/19 09:48 Hydrocodone/Acetaminophen 5/325 Mg Tablet PO 1 tab Q4H PRN Administration Moderate Pain (4-6) Albuterol Sulfate 2.5 mg 11/23/19 01:00 11/24/19 12:18 Albuterol Sulfate 2.5 Mg/3 Ml Neb NEB 2.5 mg [id number] COLE Administration Albuterol/Ipratropium 3 ml 11/24/19 13:00 11/24/19 12:18 Ipratropium/Albuterol Sulfate 3 Ml Neb NEB Not Given [id number] COLE Amlodipine Besylate 5 mg 11/23/19 09:00 11/24/19 09:38 Amlodipine 5 Mg Tab PO 5 mg BID COLE Administration Apixaban 5 mg 11/23/19 21:00 11/24/19 09:37 Apixaban 5 Mg Tab PO 5 mg BID COLE Administration Diphenhydramine HCl 25 mg 11/23/19 21:00 11/23/19 20:50 Diphenhydramine 25 Mg Cap PO 25 mg HS COLE Administration Diphenhydramine HCl 25 mg 11/23/19 16:33 11/23/19 22:19 Diphenhydramine 25 Mg Cap PO 25 mg HSPRN PRN Administration .INSOMNIA Famotidine 20 mg 11/23/19 09:00 11/24/19 09:39 Famotidine/Pf 20 Mg/2ml Vial SLOW IVP 20 mg Q12HR COLE Administration Gabapentin 600 mg 11/23/19 11:30 11/24/19 11:44 Gabapentin 300 Mg Cap PO 600 mg 0700,1130,1630,2130 COLE Administration Gabapentin 300 mg 11/23/19 10:01 11/23/19 22:19 Gabapentin 300 Mg Cap PO 300 mg DAILY PRN Administration Pain Levofloxacin 500 mg/ Device 100 mls @ 100 mls/hr 11/22/19 23:00 11/23/19 22:19 IVPB 100 mls 2300 COLE Administration Megestrol Acetate 400 mg 11/24/19 09:00 11/24/19 09:40 Megestrol Acetate 800 Mg/20 Ml Udcup PO 400 mg QAM COLE Administration Metoprolol Succinate 50 mg 11/23/19 09:00 11/24/19 09:41 Metoprolol Succinate Xl 50 Mg Tab PO 50 mg BID COLE Administration Mometasone Furoate/Formoterol Fumar 2 puff 11/23/19 18:30 11/24/19 07:00 Mometasone 200 Mcg/Formoterol 5 Mcg 120 Puff Inhaler INH 2 puff BID-RT COLE Administration Ondansetron HCl 8 mg 11/23/19 15:00 11/24/19 09:41 Ondansetron Odt 8 Mg Tab PO 8 mg TID COLE Administration Prednisone 20 mg 11/24/19 08:00 11/24/19 09:37 Prednisone 20 Mg Tab PO 20 mg QAM-WM COLE Administration - Exam General Appearance: NAD, awake alert Eye: PERRL, anicteric sclera ENT: normocephalic atraumatic, no oropharyngeal lesions Neck: supple, symmetric, no JVD, no thyromegaly, no lymphadenopathy Heart: RRR, no gallops, no rubs, normal peripheral pulses Heart - other findings: S1, S2 Respiratory - other findings: few basilar rhonchi o/w clear Gastrointestinal: soft, non-tender, non-distended, normal bowel sounds, no palpable masses Extremities: no cyanosis, no clubbing, no edema Skin: normal turgor, no lesions Neurological: cranial nerve grossly intact, no new deficit Musculoskeletal: normal tone, generalized weakness Psychiatric: normal affect, A&O x 3 Hosp A/P (1) Acute pulmonary embolism Code(s): I26.99 - OTHER PULMONARY EMBOLISM WITHOUT ACUTE COR PULMONALE Status: Acute Plan: Continue Eliquis, O2 support, plan for home O2 (2) Acute respiratory failure with hypoxia Code(s): J96.01 - ACUTE RESPIRATORY FAILURE WITH HYPOXIA Status: Acute Plan: Likely will need home O2 prior to d/c (3) Type 2 acute myocardial infarction Code(s): I21.A1 - MYOCARDIAL INFARCTION TYPE 2 Status: Acute Plan: Demand ischemic state in context of #1 (4) Malignant neoplasm of anorectum Code(s): C21.8 - MALIG NEOPLASM OF OVRLP SITES OF RECTUM, ANUS AND ANAL CANAL Status: Acute (5) Peripheral neuropathy Code(s): G62.9 - POLYNEUROPATHY, UNSPECIFIED Status: Chronic - Plan plan discussed w/ family, continue antibiotics, PT/OT, social human services assistants, respiratory therapy, out of bed/ambulate, DVT proph w/SCDs Continue Lovenox Resume home Gabapentin Pain control as clinically indicated Continue Eliquis 5mg BID Consult Cardiology service D/C Prednisone AM lab: BMP, CBC
[2019-11-24] MEDS: diphenhydrAMINE 25 MG CAP PO SCH (20:50)
[2019-11-25] MEDS: Albuterol Sulfate 2.5 mg/3 ml Neb NEB SCH (01:56)
[2019-11-25] MEDS: Gabapentin 300 MG CAP PO PRN (05:10)
[2019-11-25 06:20] LABS: Anion Gap 15 mmol/L (10-20); BUN (Urea Nitrogen) 13 mg/dL (9.8-20.1); Calc. Creatinine Clearance 64 mL/min (70-130); Calcium 8.8 mg/dL (7.8-10.44); Carbon Dioxide 20 mmol/L (23-31); Chloride 106 mmol/L (98-107); Estimated GFR-MDRD 80; Glucose 92 mg/dL (80-115); Potassium 3.9 mmol/L (3.5-5.1); Sodium 137 mmol/L (136-145)
[2019-11-25] MEDS: Mometasone 200 MCG/Formoterol 5 MCG 120 PUFF INHALER INH SCH (06:34)
[2019-11-25] MEDS: Gabapentin 300 MG CAP PO SCH ×3 (07:11→15:51)
[2019-11-25 07:30] VITALS: TEMP 98.4
[2019-11-25] MEDS: predniSONE 20 MG TAB PO SCH (09:10)
[2019-11-25] MEDS: Megestrol Acetate 800 MG/20 ML UDCUP PO SCH (09:27)
[2019-11-25] MEDS: Amlodipine 5 MG TAB PO SCH (09:28)
[2019-11-25] MEDS: Apixaban 5 MG TAB PO SCH ×2 (09:28→16:54)
[2019-11-25] MEDS: Ondansetron ODT 8 MG TAB PO SCH ×2 (09:28→15:18)
[2019-11-25] MEDS: Famotidine/PF 20 mg/2ml Vial SLOW IVP SCH (09:28)
[2019-11-25] MEDS ORDERED: predniSONE 20 MG TAB PO SCH (10:20)
--- NOTE | 2019-11-25 10:47 | PRG ---
DATE OF SERVICE: 11/25/2019 OBJECTIVE: VITAL SIGNS: Temperature 98, pulse 76, respiratory rate 18, saturations 92 on room air, blood pressure 130/72. CHEST: No wheezing. No crackles. CARDIAC: Normal S1 and S2. No gallops. ABDOMEN: No masses. ASSESSMENT: Metastatic lung cancer, respiratory failure, PE. PLAN: She is probably ready to be discharged home. She is probably going to require low-flow O2. Supportive care. Follow up with the primary care physician. We can probably taper her steroids over the course of several days. Job ID: [id number]
--- NOTE | 2019-11-25 10:58 | PQF ---
CLINICAL DOCUMENTATION CLARIFICATION FORM: Dear Dr.D. Celaya Date: 11/25/2019 1040 Please exercise your independent, professional judgment in responding to the clarification form. Clinical indicators are provided on the bottom of this form for your review. Please check appropriate box(es) to clarify if the following diagnosis has been ruled in our ruled out: Pneumonia [ ] Ruled in diagnosis [ ] Continue to treat [ ] Resolved [ ] Ruled out diagnosis [ ] Cannot rule out diagnosis [ ] Other diagnosis [ ] Unable to determine In addition, please specify: Present on Admission (POA): [ ] Yes [ ] No [ ] Unable to determine For continuity of documentation, please document condition throughout progress notes and discharge summary. Thank You. To be completed by CDI/Coding staff for physician review: CLINICAL INDICATORS - SIGNS / SYMPTOMS / LABS / RESULTS AND LOCATION IN MR EMS called for worsening SOB. Initial O2 on RA was low 80s, now 94% on 4L/NC. ( ED Report/ 11/21) Presented with progressive shortness of breath, patient was recently treated for pneumonia and taking oral antibiotics (H&P/Baidoo) 11/21 Recently discharged here with a diagnosis of presumed community acquired pneumonia (Consult/Espinoza ) 11/22 Bilateral pulmonary emboli, left greater than right, metastatic colon cancer to lung, superimposed Pneumonia (PN/Espinoza 11/23 RISK FACTORS / RESULTS AND LOCATION IN MR Colorectal cancer w/ metastasis to lungs, Acute Respiratory Failure w/ hypoxia ( H&P/Baidoo) 11/21 TREATMENTS / RESULTS AND LOCATION IN MR Levaquin IV (11/21 present) Supplemental oxygen (11/21 present) CDS Signature: Anca Worrell RN Phone #: [phone] Date: 11/25/2019 1040 This is a permanent part of the Medical Record [facility]
[2019-11-25 17:08] VITALS: BP 127/72
[2019-11-25] MEDS ORDERED: Ergocalciferol 1.25 MG(50,000 UNITS) CAP PO SCH (21:00)
--- NOTE | 2019-11-26 02:02 | DIS ---
DATE OF ADMISSION: 11/22/2019 DATE OF DISCHARGE: 11/25/2019 PRIMARY CARE PROVIDER: Cody Barros MD DISCHARGE DIAGNOSES: 1. Acute hypoxic respiratory failure. 2. Pulmonary embolism. 3. Pneumonia, present on admission. 4. Difficulty ambulating. 5. Demand ischemia. CONDITION OF PATIENT ON THE DAY OF DISCHARGE: Stable. I assessed Ms. Steinberg on the day of discharge. She denies any chest pain or shortness of breath. Vital signs are stable. S1 and S2 are heard, regular. Lungs are clear to auscultation bilaterally. CONSULTATIONS DURING THIS HOSPITALIZATION: 1. Pulmonary and Critical Care Medicine, Dr. Espinoza. 2. Cardiology, Dr. Jones. 3. Medical oncology, Ms. Deepthi Buchanan. HOSPITAL COURSE: Ms. Steinberg is a pleasant 69-year-old lady, who was admitted to [facility] on November 22, 2019, for acute hypoxic respiratory failure. CT angiogram of the chest showed bilateral pulmonary emboli. She also had elevated troponin I, felt to be secondary to demand ischemia. 2D echocardiogram showed normal left ventricular size, normal left ventricular wall thickness, and left ventricular ejection fraction of 60% to 65%. She had grade 1/3 diastolic dysfunction. She had dilated RV with normal RV systolic function. She was also seen by oncology service. She was started on apixaban 5 mg two times a day, given her history of hemoptysis. She continued to improve clinically. However, her room air oxygen saturation was low at 84% and it improved into the normal range with 2 L/minute of oxygen. She will need home oxygen, which is being arranged. Next, she was seen by [facility]. She will need to use a walker with seat and brakes. She is getting a prescription for the same. Many thanks for allowing me to participate in your patient's care. Please feel free to contact me with any questions or concerns. DISCHARGE MEDICATIONS: She has been started on: 1. Apixaban 5 mg two times a day. 2. Levofloxacin 500 mg daily for 1 week. Otherwise, no change was made to her pre-admission home medications. DISCHARGE DESTINATION: Home. DIET: Heart healthy. ACTIVITY: As tolerated. POST ACUTE CARE FOLLOWUP: With primary care provider in 3 days. TIME SPENT: Total amount of time spent coordinating this discharge: 32 minutes. Job ID: [id number]
[2019-11-26] MEDS ORDERED: predniSONE 20 MG TAB PO SCH (08:00)
--- NOTE | 2019-11-26 13:26 | EKG ---
Test Reason : Blood Pressure : / mmHG Vent. Rate : 089 BPM Atrial Rate : 089 BPM P-R Int : 164 ms QRS Dur : 084 ms QT Int : 366 ms P-R-T Axes : 082 029 062 degrees QTc Int : 445 ms Normal sinus rhythm Possible Left atrial enlargement Possible Anterior infarct , age undetermined Abnormal ECG Confirmed by MORENA XAVIER DO ([id number]), assignment desk editor KENDRA DE LA TORRE ([id number]) on 11/26/2019 1:26:23 PM Referred By: Confirmed By:MORENA XAVIER DO
== END 2019-11-25 17:21 | disposition home or self-care (01) | DRG 175 ==
LOC: ERS 16:26 → IMCU/EMU 20:20 → T4-A 11-23 22:00
PROVIDERS: ADMIT Internal Medicine; ATTEND Internal Medicine
DX: I26.99 Other pulmonary embolism without acute cor pulmonale (principal); J96.01 Acute respiratory failure with hypoxia; J18.9 Pneumonia, unspecified organism; C78.00 Secondary malignant neoplasm of unspecified lung; R64 Cachexia; Z68.1 Body mass index [BMI] 19.9 or less, adult; C21.8 Malignant neoplasm of overlapping sites of rectum, anus and anal canal; I24.8 Other forms of acute ischemic heart disease; Z20.828 Contact with and (suspected) exposure to other viral communicable diseases; R26.2 Difficulty in walking, not elsewhere classified; I10 Essential (primary) hypertension; E78.5 Hyperlipidemia, unspecified; G62.9 Polyneuropathy, unspecified; Z85.810 Personal history of malignant neoplasm of tongue; Z85.820 Personal history of malignant melanoma of skin; Z90.710 Acquired absence of both cervix and uterus; Z85.89 Personal history of malignant neoplasm of other organs and systems; Z90.49 Acquired absence of other specified parts of digestive tract; Z95.2 Presence of prosthetic heart valve
CPT/HCPCS: 36415; 71045; 71275; 80048; 80053; 82330; 82553; 82565; 82803; 84484; 85007; 85025; 85027; 87635; 93005; 93306; 93970; 94640; 94760; J1650; J1956; J7512; J7611; J7620; Q0162; Q0163; Q9967; S0028; U0003

== ENCOUNTER 2019-11-29 21:25 | Inpatient (IN) | payer MEDICARE, OTHER ==
[~2019-11-29 21:25] MED LIST changes: +Iopamidol 370 76% 100 ML VIAL ONE; -Iopamidol-370 76% 500 ML 1 ML ONE
[2019-11-29 22:00] LABS: Hemoglobin 10.2 g/dL (12.0-16.0); Mean Corpuscular HGB CONC 31.7 g/dL (32.0-36.0); Mean Corpuscular Hemoglobin 34.3 pg (27.0-31.0); Mean Platelet Volume 10.4 fL (7.4-10.4); Platelet Count 165 thou/uL (130-400); Red Blood Cell (RBC) Count 2.97 mill/uL (4.20-5.40); White Blood Cell (WBC) Count 5.5 thou/uL (4.8-10.8)
[2019-11-29 22:05] LABS: INR-International Normal Ratio 1.6; PTT 43.8 sec (22.9-36.1); Prothrombin Time 19.5 sec (12.0-14.7)
[2019-11-29 22:16] LABS: Band 6 % (5-11); Lymphocytes 5 % (21-51); MDiff Complete? YES; Macrocytosis SLIGHT = 6-15 cells (100X) (0-5/hpf); Monocytes 16 % (0-10); Neutrophil 73 % (42-75); Platelet Morphology Comment Appears Adequate
[2019-11-29 22:19] LABS: ALT (SGPT) 10 U/L (8-55); AST (SGOT) 24 U/L (5-34); Albumin 3.7 g/dL (3.4-4.8); Alkaline Phosphatase 75 U/L (40-110); Anion Gap 16 mmol/L (10-20); BUN (Urea Nitrogen) 16 mg/dL (9.8-20.1); Bilirubin, Total 0.6 mg/dL (0.2-1.2); Calc. Creatinine Clearance 0 mL/min (70-130); Calcium 9.1 mg/dL (7.8-10.44); Carbon Dioxide 24 mmol/L (23-31); Chloride 99 mmol/L (98-107); Estimated GFR-MDRD 78; Globulin 3.4 g/dL (2.4-3.5); Glucose 116 mg/dL (80-115); Potassium 4.6 mmol/L (3.5-5.1); Protein, Total 7.1 g/dL (6.0-8.3); Sodium 134 mmol/L (136-145)
--- NOTE | 2019-11-29 22:26 | RAD ---
Chest AP view INDICATION: Dyspnea COMPARISON: Prior chest radiograph dated November 22, 2019 FINDINGS: Lungs: There is worsening airspace disease of the left lung suspicious for worsening pneumonia or ly mphangitic spread of malignancy. Large right suprahilar lung mass and right lower lobe pulmonary nodule are stable. Emphysematous changes stable. Cardiac silhouette: Right chest wall port is stable. Pulmonary vasculature: Normal Pleural spaces: No pleural effusion or pneumothorax is demonstrated. Upper abdomen: No abnormality seen. Osseous structures: No acute osseous abnormality. Additional findings: None. IMPRESSION: Worsening airspace disease of the left lung may reflect worsening pneumonia or lymphangitic spread of malignancy. Stable right suprahilar lung mass and right lower lobe pulmonary nodule with emphysematous change.
[2019-11-29] MEDS ORDERED: Piperacillin/Tazobactam 4.5 GM VIAL ONE (22:34)
--- NOTE | 2019-11-29 23:48 | PDOC.EVN ---
Event Note - Event Note Event Note: [id number]
[2019-11-29] MEDS ORDERED: Ketorolac Tromethamine 30 MG/ML VIAL ONE (23:52)
--- NOTE | 2019-11-29 23:53 | CT ---
CTA Angio Chest W WO Con 11/29/2019 11:10 PM Indication: History of cancer tachycardia and hypoxia Technique: Multiple CTA images were obtained of the thorax with IV contrast. 3-D rendering: MIP rene nstructed images were created and reviewed. Comparison: Prior CTA of the chest dated 11/22/2019 11/09/2019. Findings: Pulmonary arteries: There are residual intraluminal thrombi seen within the segmental pulmonary giovany rial branches in the left lower lobe. The pulmonary embolus seen within lingular branches of the left lung has resolved. No overt pulmonary embolus is seen within the pulmonary arterial segments of the right lung. Encasement of the right upper lobe pulmonary arteries by the right suprahilar mass is stable. Heart and Aorta: Normal appearing. Mediastinum:There is an enlarged pulmonary nodule seen adjacent to the left main pulmonary artery jyoti suring 1.1 cm were previously measured 8 mm. Lungs:Large right suprahilar mass with endobronchial invasion of the right mainstem bronchus is sligh tly larger now measuring 8.6 cm in transverse axial dimension were previously measured 7.4 cm. Right lower lobe pulmonary nodule is slightly larger now measuring 1.8 cm were previously it measured 1.6 cm. There is worsening areas of scattered consolidation, interstitial and groundglass opacity seen diffusely throughout the left lung with scattered bronchiectasis. There is worsening small left pleural effusion. Pleural space: Enlarging small left pleural effusion Upper Abdomen: No acute abnormality. Osseous Structures: There is a stable healing pathologic fractures of the posterior right fourth, fi fth and sixth ribs. No new acute osseous abnormality is grossly evident. Soft tissues:No abnormality. Other findings:None. Impression: 1. Some improvement in the extent of the intraluminal thrombi present within the segmental pulmonary arterial branches of the left lower lobe and lingula. Mild residual, nonocclusive thrombi are seen within the segmental pulmonary arterial branches of the left lower lobe only. 2. Worsening groundglass airspace disease with patchy areas of consolidation of the left lung suspici ous for either worsening chronic pneumonia or worsening lymphangitic spread of tumor. There is scattered bronchiectasis seen within the left lung suggesting a component of fibrosis either from hea ling or therapy. There is an enlarging small left pleural effusion. 3. Enlarging right suprahilar mass with endobronchial invasion of the right mainstem bronchus. 4. Enlarging right lower lobe pulmonary nodule. 5. Enlarging left mediastinal lymph node, adjacent to the left main pulmonary artery is suspicion for malignant lymphadenopathy. 6. Stable healing pathologic fractures of posterior right fourth, fifth and sixth ribs.
[2019-11-30 00:47] LABS: Glucose 97 mg/dL (80-115)
[2019-11-30] MEDS ORDERED: Vancomycin 1 GM/200 ML BAG ONE (01:09)
[2019-11-30] MEDS ORDERED: Morphine 2 MG/ML VIAL ONE (01:13)
--- NOTE | 2019-11-30 01:57 | HP ---
CHIEF COMPLAINT: Shortness of breath. HISTORY OF PRESENT ILLNESS: Ms. Steinberg is a 69-year-old female with past medical history of metastatic colon cancer, metastasis to the lung, hypertension, hyperlipidemia, pulmonary embolism on Eliquis, among others, presents to the emergency room with respiratory distress. Oxygen saturation was reported in the 60s. The patient was placed on CPAP by EMS. The patient was placed on BiPAP upon arrival to the emergency room. The patient was recently discharged from the hospital on 11/25 after being treated for acute hypoxic respiratory failure due to pulmonary embolism and pneumonia. She was diagnosed with type 2 NSTEMI at that time. She was sent home on Eliquis 5 mg b.i.d. Also, Levaquin 500 mg daily. Workup today in the emergency room including chest x-ray showed worsening airspace disease mainly on the left lung, which may reflect worsening pneumonia or lymphangitic spread of malignancy. Stable right suprahilar lung mass and right lower lobe pulmonary nodule with emphysematous changes. Lab work, the patient had a lactic acid of 2.9. BNP is elevated at 559. In the emergency room, patient was given IV fluid bolus and also was given IV antibiotics. CT of the chest is being ordered, results are pending. The patient has been admitted to hospital for further management. PAST MEDICAL HISTORY: 1. Colorectal cancer, metastatic to the lung, treated with radiation and chemotherapy. 2. Pulmonary embolism. 3. Hypertension. 4. Hyperlipidemia. 5. Heart failure with preserved ejection fraction. PAST SURGICAL HISTORY: 1. Hysterectomy. 2. Colon resection. 3. Anal mass removed. SOCIAL HISTORY: Denies smoking or alcohol drinking. FAMILY HISTORY: Reviewed and noncontributory. HOME MEDICATIONS: Please see home medication reconciliation form for updated medications. ALLERGIES: NO KNOWN ALLERGIES. REVIEW OF SYSTEMS: Review of 14 systems negative except what is mentioned in history of present illness. PHYSICAL EXAMINATION: GENERAL: Patient is awake, alert, in moderate respiratory distress on BiPAP, anxious. VITAL SIGNS: Blood pressure 127/74, pulse is 109, respiratory rate is 28, oxygen saturation currently is 97% on BiPAP. HEAD AND NECK: Normocephalic. NECK: Supple. CHEST: Coarse bilateral breath sounds. HEART: S1, S2. Regular, tachycardic. ABDOMEN: Soft, nontender. Bowel sounds present. NEUROLOGIC: Awake, alert, oriented, anxious. PSYCH: Unable to assess. EXTREMITIES: No clubbing or cyanosis. LABORATORY DATA: As mentioned above in history of present illness. IMAGING STUDIES: As mentioned above in history of present illness. ASSESSMENT: 1. Acute hypoxic respiratory failure. 2. Pneumonia, healthcare associated? 3. Pulmonary embolism, recently diagnosed, on Eliquis. 4. Acute heart failure cannot be entirely ruled out based on elevated BNP. 5. Colon cancer with lung metastasis. 6. Hypertension. 7. Hyperlipidemia. 8. Anxiety. PLAN: 1. Admit to IMCU. 2. Continue with BiPAP for now. 3. CTA of the chest being done to follow the results. 4. Septic workup in the ED. Continue with IV antibiotics for now. We will consider diuresis. Based on elevated BNP, we will review CT of the chest. 5. Reconcile home medications. 6. DVT prophylaxis. Continue home anticoagulants. 7. Expected length of stay, 2 midnights or more. Job ID: [id number]
[2019-11-30] MEDS ORDERED: Ondansetron ODT 4 MG TAB SL PRN (02:30)
[2019-11-30] MEDS ORDERED: Ondansetron PF 4 MG/2 ML Vial IVP PRN (02:30)
[2019-11-30] MEDS ORDERED: HYDROcodone/Acetaminophen 5/325 mg Tablet PO PRN ×3 (02:30→09:13)
[2019-11-30] MEDS ORDERED: Acetaminophen 325 MG TAB PO PRN ×2 (02:30→09:21)
[2019-11-30] MEDS ORDERED: ALPRAZolam 0.25 MG TAB PO SCH (03:00)
[2019-11-30 03:02] VITALS: BMI 19.5
[2019-11-30] MEDS ORDERED: Lorazepam 2 MG/ML VIAL SLOW IVP SCH ×2 (05:45→10:00)
[2019-11-30] MEDS: Cefepime 1 GM in Sodium Chloride 0.9% 100 ML IVPB SCH ×3 (05:58→21:03)
[2019-11-30] MEDS ORDERED: Lorazepam 2 MG/ML VIAL SLOW IVP PRN (06:15)
[2019-11-30] MEDS ORDERED: Vancomycin HCl 1 GM in Sodium Chloride 0.9% 250 ML 300 ML IVPB SCH (09:00)
[2019-11-30] MEDS ORDERED: Gabapentin 300 MG CAP PO PRN (09:13)
--- NOTE | 2019-11-30 09:18 | PDOC.HOSPP ---
- Subjective Encounter Date: 11/30/19 Encounter Time: 11:00 non-verbal Subjective: Patient not responsive. Family gathered at bedside and have made her DNAR. - Objective Vital Signs & Weight: Vital Signs (12 hours) Temp Pulse Pulse Ox 11/30/19 08:17 108 H 11/30/19 08:00 98.2 F 11/30/19 07:54 90 L 11/30/19 03:00 97 11/30/19 02:32 102 H 11/30/19 02:11 99.0 F Weight Weight 120 lb 14.4 oz Most Recent Monitor Data Heart Rate from ECG 107 NIBP 98/61 NIBP BP-Mean 73 Respiration from ECG 29 SpO2 86 I&O: 11/29/19 11/30/19 12/01/19 06:59 06:59 06:59 Intake Total 340 Balance 340 Result Diagrams: 11/29/19 21:45 11/30/19 00:14 Hospitalist ROS - Review of Systems ROS unobtainable: due to mental status - Medication Medications: Active Medications Generic Name Dose Route Start Last Admin Trade Name Margaux PRN Reason Stop Dose Admin Cefepime HCl 1 gm/ Sodium 100 mls @ 200 mls/hr 11/30/19 04:00 11/30/19 05:58 Chloride IVPB 100 mls 0400,1200,2000 COLE Administration - Exam General - other findings: almost agonal type breathing, non-responsive Heart: RRR, no murmur, no gallops, no rubs Respiratory - other findings: on non-rebreather, agonal type breaths though somewhat deep Gastrointestinal: soft, non-distended, normal bowel sounds Psychiatric - other findings: unresponsive currently after given palliative morphine, was agitated before Hosp A/P (1) Acute respiratory failure with hypoxia Code(s): J96.01 - ACUTE RESPIRATORY FAILURE WITH HYPOXIA Status: Acute (2) Acute pulmonary embolism Code(s): I26.99 - OTHER PULMONARY EMBOLISM WITHOUT ACUTE COR PULMONALE Status: Acute (3) Pneumonia Code(s): J18.9 - PNEUMONIA, UNSPECIFIED ORGANISM Status: Acute (4) 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 cancer. Patient on Cefepime and Vancomycin since 11/29/2019. Pulmonology consulted. Dr. De Souza discussed prognosis with family and they made her DNAR. Another family member on her way, not sure if patient will live long enough for her to see patient. On elliquis for PE and for prophylaxis. Palliative care consultation done this AM. has seen patient and given last rites.
[2019-11-30] MEDS ORDERED: Albuterol 200 PUFF (6.7GM INHALER) INH PRN (09:48)
[2019-11-30] MEDS ORDERED: Lorazepam 2 MG/ML VIAL ONE (09:48)
--- NOTE | 2019-11-30 10:28 | CON ---
DATE OF CONSULTATION: 11/30/2019 TIME SPENT: This is a 50-minute time, of that time, greater than 50% spent with the patient and/or the patient's unit in the hospital. REASON FOR CONSULTATION: Hypoxic respiratory failure. HISTORY OF PRESENT ILLNESS: This is a sad case of a 69-year-old female with metastatic colon cancer with a pulmonary embolism, who presented with respiratory distress. She has been on BiPAP, which she does not want to wear. Her daughter is in the room, stating that the patient does not want to be intubated. Apparently, Cancer Care has been withdrawn by MD Kenny because she is not considered to be responding to treatment. She was recently in the hospital for pulmonary embolism, had been taking Eliquis. However, she had not been doing well at home, was brought back to the hospital. PAST MEDICAL HISTORY: 1. Colorectal cancer with lung metastasis. 2. Pulmonary embolism. 3. Hypertension. 4. Hyperlipidemia. 5. Heart failure - diastolic. PAST SURGICAL HISTORY: 1. Hysterectomy. 2. Colon resection. 3. Anal mass surgery. SOCIAL HISTORY: Nonsmoker. Does not consume alcohol. FAMILY MEDICAL HISTORY: Unremarkable. MEDICATIONS: For list of medications, please see summary section on chart. ALLERGIES: NONE. REVIEW OF SYSTEMS: Cannot be obtained because the patient is confused. PHYSICAL EXAMINATION: VITAL SIGNS: O2 saturations in the 60s on 100% non-rebreather, blood pressure 98/61, temperature 98.2, pulse about 135. GENERAL: The patient is an elderly female, who looks much older than her stated age. She is in profound respiratory discomfort. HEENT: Bitemporal wasting present. NECK: No JVD. LUNGS: Coarse breath sounds. CARDIOVASCULAR: S1 and S2. Tachycardic. ABDOMEN: Soft. EXTREMITIES: No edema. LABORATORY AND DIAGNOSTIC DATA: White blood cell count 5.5, hematocrit 32.1, and platelet count 165. INR 1.6. Sodium 134, potassium 4.6, chloride 99, CO2 of 24, BUN 16, creatinine 0.7, glucose 116. BNP 559. Her x-ray shows a large right upper lobe mass that is abutting her trachea. There looks to be some tracheal invasion. There is definitely invasion in the right mainstem bronchus. There is diffuse infiltrate on the left. There is pulmonary emboli present especially on the left side. ASSESSMENT: Metastatic colon cancer with hypoxic respiratory failure. PLAN: Ms. Steinberg is at the end of her life and has no hope for functional recovery. She needs to be kept comfortable in her last moments. I spoke to the daughter in this regard and daughter was agreeable to a DNR order. We will focus on pain relief with morphine and anxiety relief with Ativan. I would expect her to pass away shortly. Job ID: [id number]
[2019-11-30] MEDS: Morphine 4 MG/ML VIAL SLOW IVP PRN ×6 (10:41→23:41)
[2019-11-30 11:19] LABS: SARS-CoV-2 MS2 Positive; SARS-CoV-2 N Gene Negative; SARS-CoV-2 S Gene Negative; SARS-CoV-2 by NAA Not Detected (NotDetected); SARS-CoV-2 orf1ab Negative
[2019-11-30] MEDS: Gabapentin 300 MG CAP PO SCH ×3 (13:22→21:05)
[2019-11-30] MEDS: Vancomycin HCl 750 MG in Sodium Chloride 0.9% 250 ML 250 ML IVPB SCH (13:26)
[2019-11-30] MEDS: Ondansetron ODT 8 MG TAB PO SCH ×2 (17:02→21:47)
[2019-11-30] MEDS: Lorazepam 2 MG/ML VIAL SLOW IVP PRN (18:30)
[2019-11-30] MEDS: Apixaban 5 MG TAB PO SCH (21:04)
[2019-11-30] MEDS: Famotidine/PF 20 mg/2ml Vial SLOW IVP SCH (21:04)
[2019-12-01] MEDS: Vancomycin HCl 750 MG in Sodium Chloride 0.9% 250 ML 250 ML IVPB SCH (00:26)
[2019-12-01] MEDS: Morphine 4 MG/ML VIAL SLOW IVP PRN ×7 (02:35→15:24)
[2019-12-01] MEDS: Cefepime 1 GM in Sodium Chloride 0.9% 100 ML IVPB SCH ×2 (04:30→11:45)
[2019-12-01 04:41] VITALS: TEMP 98.8
[2019-12-01] MEDS: Gabapentin 300 MG CAP PO SCH ×3 (07:34→11:46)
[2019-12-01] MEDS: Ondansetron ODT 8 MG TAB PO SCH ×2 (07:34→11:46)
[2019-12-01] MEDS: Apixaban 5 MG TAB PO SCH (07:34)
[2019-12-01] MEDS: Famotidine/PF 20 mg/2ml Vial SLOW IVP SCH (07:34)
[2019-12-01] MEDS ORDERED: fentaNYL 50 mcg/hour Patch TD SCH (08:15)
--- NOTE | 2019-12-01 08:34 | PDOC.HOSPP ---
- Subjective Encounter Date: 12/01/19 Encounter Time: 11:00 Subjective: Patient unchanged from yesterday. Did seem to be having a drop in sats and respiratory rate this AM but eventually came back up. Family discussing going with hospice. - Objective Vital Signs & Weight: Vital Signs (12 hours) Temp 12/01/19 04:40 98.8 F 11/30/19 23:30 99.6 F Weight Weight 120 lb 14.4 oz Most Recent Monitor Data Heart Rate from ECG 117 NIBP 118/64 NIBP BP-Mean 82 Respiration from ECG 12 SpO2 91 I&O: 11/30/19 12/01/19 12/02/19 06:59 06:59 06:59 Intake Total 530 Balance 530 Result Diagrams: 11/29/19 21:45 11/30/19 00:14 Hospitalist ROS - Review of Systems ROS unobtainable: due to mental status - Medication Medications: Active Medications Generic Name Dose Route Start Last Admin Trade Name Freq PRN Reason Stop Dose Admin Apixaban 5 mg 11/30/19 21:00 12/01/19 07:34 Apixaban 5 Mg Tab PO Not Given BID COLE Famotidine 20 mg 11/30/19 21:00 12/01/19 07:34 Famotidine/Pf 20 Mg/2ml Vial SLOW IVP Not Given BID COLE Gabapentin 600 mg 11/30/19 12:00 12/01/19 07:34 Gabapentin 300 Mg Cap PO Not Given 07,,16,21 COLE Cefepime HCl 1 gm/ Sodium 100 mls @ 200 mls/hr 11/30/19 04:00 12/01/19 04:30 Chloride IVPB Not Given 0400,1200,2000 COLE Lorazepam 2 mg 11/30/19 09:53 11/30/19 18:30 Lorazepam 2 Mg/Ml Vial SLOW IVP 2 mg Q1H PRN Administration Anxiety/Agitation Megestrol Acetate 400 mg 12/01/19 09:00 12/01/19 07:34 Megestrol Acetate 800 Mg/20 Ml Udcup PO Not Given DAILY COLE Metoprolol Succinate 50 mg 11/30/19 21:00 12/01/19 07:34 Metoprolol Succinate Xl 50 Mg Tab PO Not Given BID COLE Morphine Sulfate 4 mg 11/30/19 09:53 12/01/19 07:53 Morphine 4 Mg/Ml Vial SLOW IVP 4 mg Q15MIN PRN Administration dyspnea Ondansetron HCl 8 mg 11/30/19 15:00 12/01/19 07:34 Ondansetron Odt 8 Mg Tab PO Not Given TID COLE - Exam General - other findings: Unresponsive with agonal type breathing Heart: RRR, no murmur, no gallops, no rubs Respiratory: no wheezes Respiratory - other findings: coarse breath sounds, breathing a bit slow and agonal Gastrointestinal: soft, non-tender, normal bowel sounds Psychiatric - other findings: non-responsive Hosp A/P (1) Acute respiratory failure with hypoxia Code(s): J96.01 - ACUTE RESPIRATORY FAILURE WITH HYPOXIA Status: Acute (2) Acute pulmonary embolism Code(s): I26.99 - OTHER PULMONARY EMBOLISM WITHOUT ACUTE COR PULMONALE Status: Acute (3) Pneumonia Code(s): J18.9 - PNEUMONIA, UNSPECIFIED ORGANISM Status: Acute (4) Colon carcinoma metastatic to lung Code(s): C18.9 - MALIGNANT NEOPLASM OF COLON, UNSPECIFIED; C78.00 - SECONDARY MALIGNANT NEOPLASM OF UNSPECIFIED LUNG Status: Chronic (5) HTN (hypertension) Code(s): I10 - ESSENTIAL (PRIMARY) HYPERTENSION Status: Chronic - Plan Patient with cancer unresponsive to therapy and PE, now with worsening respiratory status from cancer or pneumonia. At end of life and family has made DNAR. Giving morphine for comfort and respiratory distress. On elliquis for PE and for prophylaxis. Palliative care consultation. has seen patient and given last rites. Family considering hospice care.
[2019-12-01] MEDS: Lorazepam 2 MG/ML VIAL SLOW IVP PRN ×3 (08:43→15:24)
[2019-12-01] MEDS ORDERED: Megestrol Acetate 800 MG/20 ML UDCUP PO SCH (09:00)
--- NOTE | 2019-12-02 07:24 | PDOC.EVN ---
Event Note - Event Note Event Note: Per nursing report patient at 0325 this AM.
--- NOTE | 2019-12-05 09:27 | PQF ---
CLINICAL DOCUMENTATION CLARIFICATION FORM: Dear : Cheo Mcleod Date / Time: 12/05/2019 Please exercise your independent, professional judgment in responding to the clarification form. Clinical indicators are provided on the bottom of this form for your review Please check appropriate box(es): [ X ] Sepsis [ ] Severe sepsis [ ] Localized infection without sepsis [ ] Other diagnosis [ ] Unable to determine Physician Signature: Date/Time: For continuity of documentation, please document condition throughout progress notes and discharge summary. Thank You To be completed by CDI/Coding staff for physician review: Present Clinical Indicators - Signs / Symptoms / Labs Results and Location in Medical Record [x] Chest Xray: Worsening airspace disease Collected 11/28 [x] Acute hypoxic respiratory failure HP 11/29 [x] unresponsive with agonal type of breathing PN 11/30 [x] Worsening respiratory status from cancer and PNA PN 11/30 [x] Temp=11/29 Gabdu=842 BP=92/62 Respi=21 Vital Signs 11/29 [x] WBC=5.5 Laboratory 11/28 [x] Lactic=2.9 Laboratory 11/28 [x] Blood culture: no growth at 48 hrs Collected 11/28 Present Risk Factors Results and Location in Medical Record [x] 69 years old female HP 11/29 [x] Colon cancer HP 11/29 [x] Lung cancer HP 11/29 [x] NSTEMI HP 11/29 [x] CHF HP 11/29 [x] PNA PN 11/30 Present Treatments Results and Location in Medical Record [x] Chest Xray Collected 11/28 [x] BIPAP HP 11/29 [x] Admit to ICU HP 11/29 [x] Pulmonology Consult Consult 11/28 [x] Blood culture Collected 11/28 [x] Levafloxacin 500mg Oral MAR 11/24 [x] Zosyn 4.5gm IV MAR 11/28 CDS/Research Mechanic Signature: Ghassan Ramirez Phone #: [phone] Date/Time: 12/05/19 09:25 This is a permanent part of the Medical Record [facility]
--- NOTE | 2019-12-17 17:13 | EKG ---
Test Reason : Blood Pressure : / mmHG Vent. Rate : 109 BPM Atrial Rate : 109 BPM P-R Int : 140 ms QRS Dur : 078 ms QT Int : 340 ms P-R-T Axes : 094 082 072 degrees QTc Int : 457 ms Sinus tachycardia Nonspecific T wave abnormality Abnormal ECG Confirmed by IFEOMA DONOHUE, KIRILL Go ([id number]), photo editor KENDRA DE LA TORRE ([id number]) on 12/17/2019 5:13:19 PM Referred By: Confirmed By:KIRILL DIA MD
== END 2019-12-01 16:14 | disposition hospice, inpatient (51) | DRG 871 ==
LOC: ERS 21:25 → IMCU/EMU 23:13
PROVIDERS: ADMIT Internal Medicine; ATTEND Internal Medicine
PROC: 5A09357 Assistance with Respiratory Ventilation, Less than 24 Consecutive Hours, Continuous Positive Airway Pressure (ICD-10-PCS; principal; 2019-11-30)
DX: A41.9 Sepsis, unspecified organism (principal); J18.9 Pneumonia, unspecified organism; J96.01 Acute respiratory failure with hypoxia; I26.99 Other pulmonary embolism without acute cor pulmonale; I21.A1 Myocardial infarction type 2; C18.9 Malignant neoplasm of colon, unspecified; C78.00 Secondary malignant neoplasm of unspecified lung; C21.0 Malignant neoplasm of anus, unspecified; I50.32 Chronic diastolic (congestive) heart failure; Z66 Do not resuscitate; C02.9 Malignant neoplasm of tongue, unspecified; I11.0 Hypertensive heart disease with heart failure; E78.5 Hyperlipidemia, unspecified; Z20.828 Contact with and (suspected) exposure to other viral communicable diseases; Z90.710 Acquired absence of both cervix and uterus; Z79.01 Long term (current) use of anticoagulants; Z79.899 Other long term (current) drug therapy
CPT/HCPCS: 36415; 71045; 71275; 80053; 83605; 83880; 84484; 85025; 85610; 85730; 87040; 87635; 93005; 94660; 94760; 96365; 96366; 96367; 96375; J0692; J1885; J2060; J2270; J2543; J3370; J3490; Q9967; U0003

== ENCOUNTER 2019-12-01 16:22 | Inpatient (IN) | payer OTHER ==
[2019-12-01 16:45] VITALS: BMI 19.3
[2019-12-01] MEDS ORDERED: Ondansetron PF 4 MG/2 ML Vial IVP PRN (17:06)
[2019-12-01] MEDS ORDERED: Acetaminophen 650 MG Suppository PR PRN (17:07)
[2019-12-01] MEDS ORDERED: Lorazepam 2 MG/ML VIAL SLOW IVP PRN (17:09)
[2019-12-01] MEDS ORDERED: Bisacodyl 10 MG SUPP PR PRN (17:09)
[2019-12-01] MEDS ORDERED: diphenhydrAMINE 50 MG/ML VIAL IVP PRN (17:10)
[2019-12-01] MEDS ORDERED: Morphine 4 MG/ML VIAL SLOW IVP PRN (17:11)
[2019-12-01] MEDS ORDERED: Morphine 2 MG/ML VIAL SLOW IVP PRN (17:13)
[2019-12-01] MEDS ORDERED: Haloperidol Lactate 5 MG/ML VIAL SLOW IVP PRN (17:14)
[2019-12-01] MEDS ORDERED: Scopolamine 1.5 mg/72 hour Patch TOP SCH (17:15)
[2019-12-01] MEDS ORDERED: fentaNYL 50 mcg/hour Patch TD SCH (17:15)
[2019-12-01] MEDS ORDERED: Lorazepam 2 MG/ML VIAL SLOW IVP SCH (18:00)
[2019-12-01] MEDS: Morphine 4 MG/ML VIAL SLOW IVP SCH ×2 (19:09→20:29)
[2019-12-01] MEDS: Lorazepam 2 MG/ML VIAL SLOW IVP SCH (19:12)
[2019-12-01 19:53] VITALS: BP 124/60; TEMP 97.8
[2019-12-01] MEDS: Morphine 2 MG/ML VIAL SLOW IVP SCH ×2 (22:14→23:17)
[2019-12-02] MEDS: Morphine 2 MG/ML VIAL SLOW IVP SCH ×4 (00:38→02:25)
[2019-12-02] MEDS: Lorazepam 2 MG/ML VIAL SLOW IVP SCH (01:32)
--- NOTE | 2019-12-03 02:04 | DIS ---
DATE OF ADMISSION: 12/01/2019 DATE OF DISCHARGE: 12/02/2019 REASON FOR ADMISSION: Acute hypoxic respiratory failure. CAUSE OF : Colon cancer metastatic to the lungs. Other contributory medical problems include pulmonary embolism, hypertension, hyperlipidemia, and diastolic heart failure. Smoking did not contribute to the cause of . SUMMARY OF HOSPITAL COURSE: This is a 69-year-old female with a past medical history of metastatic colon cancer metastatic to the lungs, recently in the hospital for pulmonary embolism, discharged on Eliquis. She presented in respiratory distress to the emergency room, was found to have oxygen saturations in the 60s by EMS and they put her on CPAP. The patient had a repeat CT scan, which showed shrinking of the pulmonary embolism, but worsening airspace disease, likely either chronic pneumonia or worsening lymphangitic spread of tumor. The patient was not tolerating the BiPAP mask in the hospital. She and the family were concerned more about her being kept comfortable at the end of the life, so she was made do not attempt resuscitation. The patient was given morphine for comfort. She was kept on high-flow oxygen and she did pass away this morning on 12/02/2019 at 0325. Her body is being discharged to the home. Job ID: [id number]
[2019-12-04] MEDS ORDERED: fentaNYL 50 mcg/hour Patch TD SCH (17:15)
== END 2019-12-02 03:25 | disposition expired | DRG 951 ==
LOC: IMCU/EMU 16:22 → ONC 17:04
PROVIDERS: ADMIT Internal Medicine Nephrology; ATTEND Internal Medicine Nephrology
PROC: 5A09357 Assistance with Respiratory Ventilation, Less than 24 Consecutive Hours, Continuous Positive Airway Pressure (ICD-10-PCS; principal; 2019-12-01)
DX: Z51.5 Encounter for palliative care (principal); J96.01 Acute respiratory failure with hypoxia; I26.99 Other pulmonary embolism without acute cor pulmonale; J18.9 Pneumonia, unspecified organism; C18.9 Malignant neoplasm of colon, unspecified; C78.02 Secondary malignant neoplasm of left lung; C78.01 Secondary malignant neoplasm of right lung; I50.32 Chronic diastolic (congestive) heart failure; C77.9 Secondary and unspecified malignant neoplasm of lymph node, unspecified; Z66 Do not resuscitate; E78.5 Hyperlipidemia, unspecified; I11.0 Hypertensive heart disease with heart failure; Z79.01 Long term (current) use of anticoagulants; Z79.899 Other long term (current) drug therapy
CPT/HCPCS: J2060; J2270